=== PATIENT | female | born 1980 | race African-American/Black ===

== ENCOUNTER 2020-05-20 20:24 | Inpatient (IN) | payer MEDICAID ==
[~2020-05-20] VITALS: Ht 160 cm; Wt 78.9 kg
[2020-05-20] MEDS ORDERED: KETOROLAC 30MG/ML VIAL IV STA (21:28)
[2020-05-20] MEDS ORDERED: SODIUM CHLORIDE 0.9% 1,000 ML IV ONE (21:30)
[2020-05-20] MEDS ORDERED: METHYLPREDNISOLONE SOD SUCC 125 MG/2 ML VIAL IV ONE (21:30)
[2020-05-20 22:00] LABS: CLARITY URINE CLEAR (CLEAR); COLOR URINE YELLOW (YELLOW); KETONES URINE TRACE (NEGATIVE); LEUKOCYTE ESTERASE URINE NEGATIVE (NEGATIVE); NITRITE URINE NEGATIVE (NEGATIVE); OCCULT BLOOD URINE NEGATIVE (NEGATIVE); PROTEIN URINE 1+ (NEGATIVE)
[2020-05-20 22:00] LABS: BASOPHILS % 0.6 % (0.0-2.0); EOSINOPHILS % 0.1 % (0.0-5.0); HEMATOCRIT. 37.5 % (36.0-48.0); HEMOGLOBIN. 12.8 g/dL (12.0-16.0); MEAN CORPUSCULAR HEMOGLOBIN 29.1 pg (28.0-32.0); MEAN CORPUSCULAR VOLUME 85.4 fL (81.0-99.0); MEAN PLATELET VOLUME 8.2 fl (7.4-10.4); MONOCYTES % 2.9 % (2.0-8.0); NEUTROPHILS % 82.4 % (40.0-76.0); PLATELET 308 x1000/uL (130-400); RED BLOOD CELL COUNT 4.39 mill/uL (4.2-5.4); RED CELL DISTRIBUTION WIDTH 13.7 % (11.6-14.6)
[2020-05-20 22:07] LABS: PROTHROMBIN TIME 10.8 sec (9.6-11.0)
[2020-05-20 22:14] LABS: CHLORIDE 97 mEq/L (98-107)
[2020-05-20 22:14] LABS: PHENCYCLIDINE URINE SCREEN NEGATIVE (NEGATIVE)
[2020-05-20 22:15] LABS: *AMPHETAMINES SCREEN URINE NEGATIVE (NEGATIVE); *BARBITURATES SCREEN URINE NEGATIVE (NEGATIVE); *BENZODIAZEPINES SCREEN URINE NEGATIVE (NEGATIVE); *COCAINE SCREEN URINE NEGATIVE (NEGATIVE); CANNABINOID URINE SCREEN NEGATIVE (NEGATIVE); METHADONE URINE SCREEN NEGATIVE (NEGATIVE); OPIATES URINE SCREEN NEGATIVE (NEGATIVE)
[2020-05-20 22:17] LABS: HCG SCREEN NEGATIVE
[2020-05-20 22:22] LABS: BETA HYDROXYBUTYRATE 0.2 mMol/L (0.0-0.3)
[2020-05-20] MEDS ORDERED: INSULIN REGULAR (HUMULIN R) 300UNITS/3ML VIAL SUBCUT NR (22:45)
[2020-05-20] MEDS ORDERED: CEFTRIAXONE 1 G PREMIX 50 ML IV NR (22:45)
[2020-05-20] MEDS ORDERED: SODIUM CHLORIDE 0.9% 1000ML BAG (SEPSIS BOLUS) IV NR (22:45)
[2020-05-20] MEDS ORDERED: ONDANSETRON HCL 4MG/2ML INJ IV STA (22:48)
[2020-05-20] MEDS ORDERED: MORPHINE SULFATE 4 MG/ML CPJ (NOT FOR IM USE) IV STA (22:48)
[2020-05-20] MEDS ORDERED: DIPHENHYDRAMINE 50MG/ML VIAL IV ONE (23:00)
[2020-05-21] MEDS: MORPHINE SULFATE 2 MG/ML CPJ (NOT FOR IM USE) IV PRN ×4 (01:28→16:25)
[2020-05-21] MEDS ORDERED: CLONIDINE 0.1MG TABLET PO PRN (01:30)
[2020-05-21] MEDS ORDERED: DEXTROSE 50% WATER 50ML SYRINGE IV PRN (03:00)
[2020-05-21] MEDS ORDERED: GABA-532 PO (03:09)
[2020-05-21] MEDS ORDERED: INSU100I24 SQ (03:09)
[2020-05-21] MEDS ORDERED: ATOR20TA65 PO (03:09)
[2020-05-21] MEDS ORDERED: METF-873 PO (03:09)
[2020-05-21] MEDS ORDERED: INSU100I32 SQ (03:09)
[2020-05-21] MEDS ORDERED: LISI2.5T47 PO (03:09)
[2020-05-21] MEDS ORDERED: DICL75TA5 PO (03:09)
[2020-05-21] MEDS ORDERED: PRED2.5T4 PO (03:09)
[2020-05-21] MEDS ORDERED: HYDR25TA PO (03:09)
[2020-05-21 03:11] VITALS: BP 153/78
[2020-05-21 04:00] VITALS: BP 138/72
[2020-05-21] MEDS: GABAPENTIN 300MG CAPSULE PO SCH ×3 (06:09→22:27)
[2020-05-21] MEDS: METFORMIN HCL 500MG TABLET PO SCH ×2 (06:43→18:33)
[2020-05-21] MEDS: INSULIN LISPRO 100 UNITS/ML SUBCUT SCH ×4 (06:44→20:48)
[2020-05-21] MEDS: BLOOD SUGAR DIAGNOSTIC STRIP TEST SCH ×4 (06:54→20:53)
[2020-05-21 08:00] VITALS: BP 140/74
[2020-05-21] MEDS ORDERED: PREDNISONE 5MG TABLET PO SCH (09:00)
[2020-05-21] MEDS: ENOXAPARIN 40MG/0.4ML SYR SUBCUT SCH (09:04)
[2020-05-21] MEDS: METHYLPREDNISOLONE SOD SUCC 40 MG/ML VIAL IV SCH ×3 (09:04→22:27)
[2020-05-21] MEDS: LISINOPRIL 20MG TABLET PO SCH (09:04)
[2020-05-21] MEDS ORDERED: INSULIN GLARGINE UD 100 UNITS/ML SYR SUBCUT SCH ×2 (10:00)
[2020-05-21 12:00] VITALS: BP 138/74
[2020-05-21 16:00] VITALS: BP 141/68
[2020-05-21 20:00] VITALS: BP 160/82
[2020-05-21] MEDS: ATORVASTATIN CALCIUM 20MG TABLET PO SCH (20:51)
[2020-05-21] MEDS ORDERED: INSULIN REGULAR (HUMULIN R) UD 100 UNITS/ML SYR SUBCUT NR (21:00)
[2020-05-21] MEDS ORDERED: INSULIN LISPRO 100 UNITS/ML SUBCUT NR (21:00)
[2020-05-21] MEDS: ZOLPIDEM TARTRATE 5MG TABLET PO PRN (22:27)
[2020-05-21] MEDS: INSULIN GLARGINE UD 100 UNITS/ML SYR SUBCUT SCH (22:29)
[2020-05-22] VITALS: BP 135/69
[2020-05-22] MEDS: CELECOXIB 200MG CAPSULE PO SCH ×3 (02:30→16:50)
[2020-05-22] MEDS: HYDROXYCHLOROQUINE SULFATE 200MG TABLET PO SCH ×3 (02:30→16:50)
[2020-05-22] MEDS: MORPHINE SULFATE 2 MG/ML CPJ (NOT FOR IM USE) IV PRN ×4 (02:36→23:25)
[2020-05-22 04:00] VITALS: BP 130/69
[2020-05-22] MEDS: METFORMIN HCL 500MG TABLET PO SCH ×2 (06:44→16:50)
[2020-05-22] MEDS: BLOOD SUGAR DIAGNOSTIC STRIP TEST SCH ×4 (06:44→21:57)
[2020-05-22] MEDS: GABAPENTIN 300MG CAPSULE PO SCH ×3 (06:44→23:12)
[2020-05-22] MEDS: METHYLPREDNISOLONE SOD SUCC 40 MG/ML VIAL IV SCH ×2 (06:44→20:24)
[2020-05-22] MEDS: INSULIN LISPRO 100 UNITS/ML SUBCUT SCH ×4 (06:44→21:00)
[2020-05-22 08:00] VITALS: BP 158/80
[2020-05-22] MEDS: LISINOPRIL 20MG TABLET PO SCH (09:12)
[2020-05-22] MEDS: ENOXAPARIN 40MG/0.4ML SYR SUBCUT SCH (09:25)
[2020-05-22] MEDS: INSULIN GLARGINE UD 100 UNITS/ML SYR SUBCUT SCH ×2 (09:28→22:00)
[2020-05-22] MEDS ORDERED: ONDANSETRON HCL 4MG/2ML INJ IV PRN (10:30)
[2020-05-22 12:00] VITALS: BP 141/75
[2020-05-22] MEDS ORDERED: ACETAMINOPHEN 325MG TABLET PO PRN (14:30)
[2020-05-22 16:00] VITALS: BP 152/81
[2020-05-22] MEDS ORDERED: DOCUSATE SODIUM 250MG CAPSULE PO PRN (16:15)
[2020-05-22] MEDS ORDERED: DOCUSATE SODIUM 250MG CAPSULE PO NR (16:15)
[2020-05-22] MEDS: SODIUM CHLORIDE 0.9% 1,000 ML IV SCH (16:51)
[2020-05-22 17:31] LABS: BASOPHILS % 0.3 % (0.0-2.0); HEMATOCRIT. 32.5 % (36.0-48.0); HEMOGLOBIN. 11.2 g/dL (12.0-16.0); LYMPHOCYTES % 15.4 % (20.0-50.0); MEAN CORPUSCULAR HEMOGLOBIN 29.4 pg (28.0-32.0); MEAN CORPUSCULAR VOLUME 85.4 fL (81.0-99.0); MONOCYTES % 5.2 % (2.0-8.0); NEUTROPHILS % 79.1 % (40.0-76.0); PLATELET 285 x1000/uL (130-400); RED BLOOD CELL COUNT 3.81 mill/uL (4.2-5.4); RED CELL DISTRIBUTION WIDTH 13.7 % (11.6-14.6)
[2020-05-22 17:40] LABS: CHLORIDE 102 mEq/L (98-107)
[2020-05-22] MEDS: METOCLOPRAMIDE HCL 10MG/2ML VIAL IV SCH ×2 (19:44→23:12)
[2020-05-22 20:00] VITALS: BP 152/83
[2020-05-22] MEDS: ATORVASTATIN CALCIUM 20MG TABLET PO SCH (20:24)
[2020-05-22] MEDS: FAMOTIDINE 20MG TABLET PO SCH (20:24)
[2020-05-22] MEDS: ZOLPIDEM TARTRATE 5MG TABLET PO PRN (23:24)
[2020-05-23] VITALS: BP 158/80
[2020-05-23] MEDS: SODIUM CHLORIDE 0.9% 1,000 ML IV SCH (03:50)
[2020-05-23 04:00] VITALS: BP 138/72
[2020-05-23] MEDS: METHYLPREDNISOLONE SOD SUCC 40 MG/ML VIAL IV SCH (05:26)
[2020-05-23] MEDS: METOCLOPRAMIDE HCL 10MG/2ML VIAL IV SCH ×2 (05:26→11:58)
[2020-05-23] MEDS: GABAPENTIN 300MG CAPSULE PO SCH ×2 (05:28→14:44)
[2020-05-23] MEDS: BLOOD SUGAR DIAGNOSTIC STRIP TEST SCH ×2 (05:35→11:58)
[2020-05-23] MEDS: INSULIN LISPRO 100 UNITS/ML SUBCUT SCH ×2 (07:40→13:20)
[2020-05-23 08:00] VITALS: BP 143/75
[2020-05-23 09:06] LABS: ANTI-DNA DOUBLE STRANDED QUANT < 1 IU/mL (0-9); G6PD RBC 3.99 x10E6/uL (3.77-5.28)
[2020-05-23] MEDS ORDERED: EZ-HD SUSPENSION(BARIUM SULFATE 340GM) PO ONE (09:58)
[2020-05-23] MEDS ORDERED: BARIUM SULFATE 176 GM SUSP.RECON ONE (09:59)
[2020-05-23] MEDS ORDERED: SIMETHICONE/SOD BICARB/CIT AC 1 EACH GRAN.EF.PK ONE (10:15)
[2020-05-23] MEDS: LISINOPRIL 20MG TABLET PO SCH (11:35)
[2020-05-23] MEDS: METFORMIN HCL 500MG TABLET PO SCH (11:35)
[2020-05-23] MEDS: ENOXAPARIN 40MG/0.4ML SYR SUBCUT SCH (11:35)
[2020-05-23] MEDS: HYDROXYCHLOROQUINE SULFATE 200MG TABLET PO SCH (11:35)
[2020-05-23] MEDS: FAMOTIDINE 20MG TABLET PO SCH (11:36)
[2020-05-23] MEDS: INSULIN GLARGINE UD 100 UNITS/ML SYR SUBCUT SCH (11:57)
[2020-05-23] MEDS: CELECOXIB 200MG CAPSULE PO SCH (11:58)
[2020-05-23 12:00] VITALS: BP 155/79
[2020-05-23] MEDS ORDERED: MAGNESIUM/ALUMINUM HYDROXIDE/SIMETHICONE 30ML UDC PO PRN (14:15)
[2020-05-23] MEDS ORDERED: MAGNESIUM/ALUMINUM HYDROXIDE/SIMETHICONE 30ML UDC PO SCH (14:15)
[2020-05-23] MEDS ORDERED: FAMO20TA8 PO (14:49)
[2020-05-23] MEDS ORDERED: HYDR200T35 PO (14:49)
[2020-05-23] MEDS ORDERED: METO-293 MT (14:49)
[2020-05-23] MEDS ORDERED: CELE200C PO (14:49)
[2020-05-23] MEDS ORDERED: PRED10TA MT (14:51)
[2020-05-23 15:06] LABS: G6PD QUANTITATIVE 342 (127-427)
[2020-05-23 15:25] VITALS: BP 166/77
[2020-05-23] MEDS ORDERED: INSULIN GLARGINE UD 100 UNITS/ML SYR SUBCUT SCH (22:00)
[2020-05-24 09:08] LABS: ALDOLASE 4.6 U/L (3.3-10.3); ANGIOTENSION CONVERTING ENZYME 7 U/L (14-82); GLOMERULAR BASEMENT MEMB AB 3 units (0-20)
[2020-05-24 13:06] LABS: ANA IFA Negative (.); ATYPICAL P-ANCA <1:20 titer (Neg:<1:20); CYTOPLASMIC C-ANCA <1:20 titer (Neg:<1:20); PERINUCLEAR P-ANCA <1:20 titer (Neg:<1:20)
[2020-05-25 04:07] LABS: DRVVT LA 30.6 sec (0.0-47.0); LUPUS ANTICOAG INTERPRETATION Comment: (.); PTT-LA 31.6 sec (0.0-51.9)
[2020-05-25 09:09] LABS: ANTI-CARDIOLIPIN AB IGA < 9 APL U/mL (0-11); ANTI-CARDIOLIPIN AB IGG < 9 GPL U/mL (0-14)
[2020-05-25 14:08] LABS: ANTI-MYELOPEROXIDASE AB < 9.0 U/mL (0.0-9.0); ANTI-PROTEINASE 3 ABS < 3.5 U/mL (0.0-3.5)
== END 2020-05-23 16:05 | disposition home or self-care (01) | DRG 48 ==
LOC: ER 20:24 → 8WST 23:13 → EDBEDREQ 23:29 → EDBEDREQTM 23:29 → ENRESERV 05-21 00:34
PROVIDERS: ADMIT Internal Medicine; ATTEND Internal Medicine
DX: E11.43 Type 2 diabetes mellitus with diabetic autonomic (poly)neuropathy (principal); M32.9 Systemic lupus erythematosus, unspecified; R65.10 Systemic inflammatory response syndrome (SIRS) of non-infectious origin without acute organ dysfunction; E87.2 Acidosis; E87.1 Hypo-osmolality and hyponatremia; E87.8 Other disorders of electrolyte and fluid balance, not elsewhere classified; K29.70 Gastritis, unspecified, without bleeding; E78.5 Hyperlipidemia, unspecified; D72.810 Lymphocytopenia; I10 Essential (primary) hypertension; M54.5 Low back pain; J45.909 Unspecified asthma, uncomplicated; E11.9 Type 2 diabetes mellitus without complications; M13.0 Polyarthritis, unspecified; R80.9 Proteinuria, unspecified; K59.00 Constipation, unspecified; K31.84 Gastroparesis; Z88.5 Allergy status to narcotic agent; Z90.710 Acquired absence of both cervix and uterus
CPT/HCPCS: 36415; 71045; 74220; 80048; 80053; 80305; 81003; 82010; 82085; 82164; 82955; 82962; 83036; 83520; 83605; 84145; 84156; 84439; 84484; 84703; 85025; 85041; 85613; 85651; 85732; 86147; 86160; 86225; 86256; 86431; 86592; 86780; 93005; 96374; 99291; C1893; J0696; J1200; J1650; J1815; J1885; J2270; J2405; J2765; J2920; J2930; J7030; J7517

== ENCOUNTER 2020-06-26 01:58 | Emergency (ER) | payer MEDICAID ==
[~2020-06-26] VITALS: Ht 162.6 cm; Wt 73.0 kg
[~2020-06-26 01:58] MED LIST: ATOR20TA65 PO; CELE200C PO; FAMO20TA8 PO; GABA-532 PO; HYDR200T35 PO; HYDR25TA PO; INSU100I24 SQ; INSU100I32 SQ; LISI2.5T47 PO; METF-873 PO; METO-293 MT; PRED10TA MT; PRED2.5T4 PO
[2020-06-26 02:03] VITALS: BP 118/72
== END 2020-06-26 02:45 | disposition left against medical advice (07) ==
LOC: ER 01:58
DX: Z53.21 Procedure and treatment not carried out due to patient leaving prior to being seen by health care provider (principal); I49.9 Cardiac arrhythmia, unspecified
CPT/HCPCS: 82962; 93005

== ENCOUNTER 2021-02-22 23:04 | Inpatient (IN) | payer MEDICAID ==
[~2021-02-22] VITALS: Ht 162.6 cm; Wt 83.9 kg
[2021-02-22] MEDS ORDERED: ONDANSETRON HCL 4MG/2ML INJ IV STA (23:15)
[2021-02-22 23:42] LABS: HEMATOCRIT. 34.6 % (36.0-48.0); HEMOGLOBIN. 11.8 g/dL (12.0-16.0); MEAN CORPUSCULAR HEMOGLOBIN 29.6 pg (28.0-32.0); MEAN CORPUSCULAR VOLUME 86.4 fL (81.0-99.0); MEAN PLATELET VOLUME 7.9 fl (7.4-10.4); PLATELET 286 x1000/uL (130-400); RED CELL DISTRIBUTION WIDTH 13.9 % (11.6-14.6)
[2021-02-22] MEDS ORDERED: DIPHENHYDRAMINE 50MG/ML VIAL IV ONE (23:45)
[2021-02-22] MEDS ORDERED: MORPHINE SULFATE 4 MG/ML CPJ (NOT FOR IM USE) IV ONE (23:45)
[2021-02-22 23:49] LABS: CHLORIDE 94 mEq/L (98-107)
[2021-02-22 23:50] LABS: HCG SCREEN NEGATIVE
[2021-02-22 23:55] LABS: ETHANOL BLOOD < 10 mg/dL
[2021-02-23 01:16] LABS: PLATELET ESTIMATE NORMAL
[2021-02-23] MEDS ORDERED: IOHEXOL-350 100 ML BOTTLE ONE (02:21)
[2021-02-23] MEDS ORDERED: MORPHINE SULFATE 4 MG/ML CPJ (NOT FOR IM USE) IV ONE (02:45)
[2021-02-23] MEDS ORDERED: METOCLOPRAMIDE HCL 10MG/2ML VIAL IV NR (03:45)
[2021-02-23] MEDS ORDERED: SODIUM CHLORIDE 0.9% 1,000 ML IV NR ×2 (03:45)
[2021-02-23] MEDS ORDERED: INSULIN REGULAR (HUMULIN R) 300UNITS/3ML VIAL IV ONE (04:00)
[2021-02-23 04:38] LABS: CLARITY URINE CLEAR (CLEAR); COLOR URINE YELLOW (YELLOW); KETONES URINE TRACE (NEGATIVE); LEUKOCYTE ESTERASE URINE NEGATIVE (NEGATIVE); NITRITE URINE NEGATIVE (NEGATIVE); OCCULT BLOOD URINE NEGATIVE (NEGATIVE); PH URINE 7.5 (4.5-8.0); PROTEIN URINE 1+ (NEGATIVE)
[2021-02-23] MEDS ORDERED: ASPIRIN 81MG TABLET PO ONE (04:45)
[2021-02-23 04:51] LABS: *AMPHETAMINES SCREEN URINE NEGATIVE (NEGATIVE); *BARBITURATES SCREEN URINE NEGATIVE (NEGATIVE); *BENZODIAZEPINES SCREEN URINE NEGATIVE (NEGATIVE); *COCAINE SCREEN URINE NEGATIVE (NEGATIVE)
[2021-02-23 04:52] LABS: CANNABINOID URINE SCREEN NEGATIVE (NEGATIVE); METHADONE URINE SCREEN NEGATIVE (NEGATIVE); PHENCYCLIDINE URINE SCREEN NEGATIVE (NEGATIVE)
[2021-02-23 05:02] LABS: OPIATES URINE SCREEN PRESUMTIVE POSITIVE (NEGATIVE)
[2021-02-23] MEDS: HYDROCODONE/ACETAMINOPHEN 5/325MG TABLET PO PRN ×3 (08:45→21:48)
[2021-02-23] MEDS ORDERED: INSULIN LISPRO 100 UNITS/ML SUBCUT NR (11:30)
[2021-02-23 12:14] VITALS: BP 114/76
[2021-02-23] MEDS ORDERED: DEXTROSE 50% WATER 50ML SYRINGE IV PRN (13:00)
[2021-02-23] MEDS ORDERED: INSULIN GLARGINE UD 100 UNITS/ML SYR SUBCUT NR (13:00)
[2021-02-23 13:30] VITALS: BP 138/67
[2021-02-23] MEDS ORDERED: NON FORMULARY PATIENT HOME MED XX SCH ×2 (14:30)
[2021-02-23] MEDS ORDERED: QUET100T34 PO (14:32)
[2021-02-23] MEDS ORDERED: PRAZ2CAP2 PO (14:32)
[2021-02-23] MEDS ORDERED: FLUT1BLS IH (14:32)
[2021-02-23] MEDS ORDERED: ESCI20TA37 PO (14:32)
[2021-02-23] MEDS: BLOOD SUGAR DIAGNOSTIC STRIP TEST SCH ×2 (16:40→21:00)
[2021-02-23] MEDS ORDERED: CELECOXIB 200MG CAPSULE PO SCH (17:00)
[2021-02-23] MEDS: METFORMIN HCL 500MG TABLET PO SCH (17:53)
[2021-02-23] MEDS: NYSTATIN 100,000 UNITS/ML 5ML UDC SSW SCH (17:53)
[2021-02-23] MEDS: HYDROXYCHLOROQUINE SULFATE 200MG TABLET PO SCH (17:53)
[2021-02-23] MEDS: INSULIN LISPRO 100 UNITS/ML SUBCUT SCH ×2 (17:55→22:13)
[2021-02-23 18:00] VITALS: BP 128/52
[2021-02-23 20:00] VITALS: BP 133/59
[2021-02-23] MEDS ORDERED: GABAPENTIN 300MG CAPSULE PO SCH (21:00)
[2021-02-23] MEDS: CELECOXIB 200MG CAPSULE PO SCH (21:51)
[2021-02-23] MEDS: FAMOTIDINE 20MG TABLET PO SCH (21:52)
[2021-02-23] MEDS: CLOTRIMAZOLE 1% VAGINAL CREAM 45GM VG SCH (21:52)
[2021-02-23] MEDS: ATORVASTATIN CALCIUM 20MG TABLET PO SCH (21:52)
[2021-02-24] VITALS (21 sets, daily range): BP systolic 70–153; BP diastolic 44–62
[2021-02-24] MEDS: NYSTATIN 100,000 UNITS/ML 5ML UDC SSW SCH ×4 (01:43→19:00)
[2021-02-24] MEDS: INSULIN GLARGINE UD 100 UNITS/ML SYR SUBCUT SCH ×3 (01:44→22:42)
[2021-02-24] MEDS: METOCLOPRAMIDE HCL 10MG/2ML VIAL IV SCH ×2 (02:22→06:20)
[2021-02-24] MEDS ORDERED: GABAPENTIN 300MG CAPSULE PO SCH (06:00)
[2021-02-24] MEDS: METFORMIN HCL 500MG TABLET PO SCH ×2 (06:21→17:56)
[2021-02-24] MEDS: BLOOD SUGAR DIAGNOSTIC STRIP TEST SCH ×4 (06:21→22:37)
[2021-02-24] MEDS: GABAPENTIN 300MG CAPSULE PO SCH ×3 (06:21→17:56)
[2021-02-24] MEDS: INSULIN LISPRO 100 UNITS/ML SUBCUT SCH ×4 (06:23→22:42)
[2021-02-24 07:06] LABS: HEMATOCRIT. 30.3 % (36.0-48.0); MEAN CORPUSCULAR HEMOGLOBIN 28.5 pg (28.0-32.0); MEAN PLATELET VOLUME 8.3 fl (7.4-10.4); PLATELET 211 x1000/uL (130-400); RED BLOOD CELL COUNT 3.52 mill/uL (4.2-5.4); RED CELL DISTRIBUTION WIDTH 14.2 % (11.6-14.6)
[2021-02-24] MEDS: HYDROCODONE/ACETAMINOPHEN 10/325MG TABLET PO PRN ×2 (08:30→19:20)
[2021-02-24] MEDS: HYDROXYCHLOROQUINE SULFATE 200MG TABLET PO SCH ×2 (08:56→20:21)
[2021-02-24] MEDS: CEFTRIAXONE 1,000 MG in DEXTROSE 5% WATER 50 ML IV SCH ×2 (08:56→21:00)
[2021-02-24] MEDS: FAMOTIDINE 20MG TABLET PO SCH ×2 (08:56→22:32)
[2021-02-24] MEDS: SODIUM CHLORIDE 0.45% 1,000 ML IV SCH ×2 (08:56→09:05)
[2021-02-24] MEDS: PREDNISONE 5MG TABLET PO SCH (08:57)
[2021-02-24] MEDS: CELECOXIB 200MG CAPSULE PO SCH (08:59)
[2021-02-24] MEDS ORDERED: HYDROCHLOROTHIAZIDE 25MG TABLET PO SCH (09:00)
[2021-02-24] MEDS ORDERED: LISINOPRIL 2.5MG TABLET PO SCH (09:00)
[2021-02-24] MEDS: ONDANSETRON HCL 4MG/2ML INJ IV PRN (11:06)
[2021-02-24] MEDS: ACETAMINOPHEN 325MG TABLET PO PRN ×2 (12:41→20:22)
[2021-02-24] MEDS ORDERED: SODIUM CHLORIDE 0.9% 1000ML BAG (SEPSIS BOLUS) IV ONE (13:00)
[2021-02-24 13:01] LABS: PLATELET ESTIMATE NORMAL
[2021-02-24] MEDS: MIDODRINE HCL 5MG TABLET PO SCH ×2 (13:10→17:55)
[2021-02-24] MEDS: METOCLOPRAMIDE HCL 10MG TABLET PO SCH ×2 (14:14→17:56)
[2021-02-24] MEDS: SODIUM CHLORIDE 0.9% 1,000 ML IV SCH (14:35)
[2021-02-24] MEDS ORDERED: SODIUM CHLORIDE 0.9% 500 ML IV NR (15:30)
[2021-02-24] MEDS ORDERED: PHENYLEPHRINE 100 MG in DEXT 5% WATER 240 ML IV PRN (17:15)
[2021-02-24] MEDS: ATORVASTATIN CALCIUM 20MG TABLET PO SCH (20:21)
[2021-02-24] MEDS ORDERED: INSULIN GLARGINE UD 100 UNITS/ML SYR SUBCUT SCH (22:00)
[2021-02-24] MEDS: CLOTRIMAZOLE 1% VAGINAL CREAM 45GM VG SCH (22:29)
[2021-02-24] MEDS: NOREPINEPHRINE 8 MG in DEXT 5% WATER 242 ML IV PRN (23:30)
[2021-02-25] VITALS (92 sets, daily range): BP systolic 60–172; BP diastolic 29–127
[2021-02-25] MEDS: METOCLOPRAMIDE HCL 10MG TABLET PO SCH ×2 (01:26→07:20)
[2021-02-25] MEDS: NYSTATIN 100,000 UNITS/ML 5ML UDC SSW SCH ×4 (01:26→18:16)
[2021-02-25] MEDS: SODIUM CHLORIDE 0.9% 1,000 ML IV SCH ×2 (01:27→14:01)
[2021-02-25 05:55] LABS: HEMATOCRIT. 29.8 % (36.0-48.0); HEMOGLOBIN. 9.7 g/dL (12.0-16.0); MEAN CORPUSCULAR HEMOGLOBIN 28.9 pg (28.0-32.0); MEAN CORPUSCULAR VOLUME 88.3 fL (81.0-99.0); MEAN PLATELET VOLUME 9.5 fl (7.4-10.4); PLATELET 160 x1000/uL (130-400); RED BLOOD CELL COUNT 3.37 mill/uL (4.2-5.4); RED CELL DISTRIBUTION WIDTH 14.3 % (11.6-14.6)
[2021-02-25] MEDS: METFORMIN HCL 500MG TABLET PO SCH (07:20)
[2021-02-25] MEDS: BLOOD SUGAR DIAGNOSTIC STRIP TEST SCH ×4 (07:30→22:30)
[2021-02-25] MEDS ORDERED: ONDANSETRON HCL 4MG/2ML INJ IV PRN (07:45)
[2021-02-25] MEDS: ONDANSETRON HCL 4MG/2ML INJ IV PRN ×2 (07:50→18:16)
[2021-02-25] MEDS: INSULIN LISPRO 100 UNITS/ML SUBCUT SCH ×4 (07:54→22:30)
[2021-02-25 08:31] LABS: PLATELET ESTIMATE NORMAL
[2021-02-25] MEDS: PREDNISONE 5MG TABLET PO SCH (08:53)
[2021-02-25] MEDS: FAMOTIDINE 20MG TABLET PO SCH (08:54)
[2021-02-25] MEDS: HYDROXYCHLOROQUINE SULFATE 200MG TABLET PO SCH ×2 (08:54→16:51)
[2021-02-25] MEDS: MIDODRINE HCL 5MG TABLET PO SCH ×3 (08:54→16:51)
[2021-02-25] MEDS: GABAPENTIN 300MG CAPSULE PO SCH ×3 (08:54→16:51)
[2021-02-25] MEDS ORDERED: LIDOCAINE HCL 1% 20ML VIAL (Pyxis) INJ ONE (09:50)
[2021-02-25] MEDS: INSULIN GLARGINE UD 100 UNITS/ML SYR SUBCUT SCH ×2 (10:27→22:45)
[2021-02-25] MEDS: NOREPINEPHRINE 8 MG in DEXT 5% WATER 242 ML IV PRN (10:57)
[2021-02-25] MEDS: METOCLOPRAMIDE HCL 10MG/2ML VIAL IV SCH ×2 (11:52→18:16)
[2021-02-25] MEDS ORDERED: IPRATROPIUM/ALBUTEROL 0.5-3(2.5)MG/3ML NEB HHN PRN (13:30)
[2021-02-25] MEDS: BUDESONIDE 0.5MG/2ML NEB HHN SCH ×2 (14:47→21:40)
[2021-02-25] MEDS: IPRATROPIUM/ALBUTEROL 0.5-3(2.5)MG/3ML NEB HHN SCH ×2 (14:48→21:40)
[2021-02-25] MEDS: CEFTRIAXONE 1,000 MG in DEXTROSE 5% WATER 50 ML IV SCH (21:00)
[2021-02-25] MEDS: ATORVASTATIN CALCIUM 20MG TABLET PO SCH (22:00)
[2021-02-25] MEDS: CLOTRIMAZOLE 1% VAGINAL CREAM 45GM VG SCH (22:00)
[2021-02-26] VITALS (91 sets, daily range): BP systolic 68–148; BP diastolic 41–94
[2021-02-26] MEDS: NYSTATIN 100,000 UNITS/ML 5ML UDC SSW SCH ×4 (00:30→17:35)
[2021-02-26] MEDS: METOCLOPRAMIDE HCL 10MG/2ML VIAL IV SCH ×4 (00:30→17:36)
[2021-02-26] MEDS: SODIUM CHLORIDE 0.9% 1,000 ML IV SCH ×3 (01:01→14:26)
[2021-02-26] MEDS: IPRATROPIUM/ALBUTEROL 0.5-3(2.5)MG/3ML NEB HHN SCH ×4 (03:04→20:47)
[2021-02-26 05:32] LABS: MEAN CORPUSCULAR HEMOGLOBIN 28.4 pg (28.0-32.0); MEAN CORPUSCULAR VOLUME 85.6 fL (81.0-99.0); MEAN PLATELET VOLUME 9.1 fl (7.4-10.4); PLATELET 130 x1000/uL (130-400); RED BLOOD CELL COUNT 3.16 mill/uL (4.2-5.4); RED CELL DISTRIBUTION WIDTH 14.6 % (11.6-14.6)
[2021-02-26 05:48] LABS: CHLORIDE 101 mEq/L (98-107)
[2021-02-26 05:57] LABS: PHOSPHORUS 2.4 mg/dL (2.5-4.9)
[2021-02-26] MEDS: BLOOD SUGAR DIAGNOSTIC STRIP TEST SCH ×4 (06:24→20:34)
[2021-02-26] MEDS: INSULIN LISPRO 100 UNITS/ML SUBCUT SCH ×4 (06:25→20:41)
[2021-02-26] MEDS: BUDESONIDE 0.5MG/2ML NEB HHN SCH ×2 (08:31→20:50)
[2021-02-26] MEDS ORDERED: SODIUM PHOS,M-BASIC-D-BASIC 15 MM in DEXT 5% WATER 250 ML IV SCH (09:00)
[2021-02-26] MEDS ORDERED: MAGNESIUM 2 G PREMIX 50 ML IV SCH (09:00)
[2021-02-26] MEDS: FAMOTIDINE 20MG TABLET PO SCH (09:05)
[2021-02-26] MEDS: HYDROXYCHLOROQUINE SULFATE 200MG TABLET PO SCH ×2 (09:05→17:35)
[2021-02-26] MEDS: PREDNISONE 5MG TABLET PO SCH (09:05)
[2021-02-26] MEDS: MIDODRINE HCL 5MG TABLET PO SCH ×3 (09:06→17:36)
[2021-02-26] MEDS: GABAPENTIN 300MG CAPSULE PO SCH ×3 (09:06→17:36)
[2021-02-26] MEDS: INSULIN GLARGINE UD 100 UNITS/ML SYR SUBCUT SCH ×2 (09:13→22:44)
[2021-02-26] MEDS: NOREPINEPHRINE 8 MG in DEXT 5% WATER 242 ML IV PRN (09:24)
[2021-02-26 09:48] LABS: PLATELET ESTIMATE NORMAL
[2021-02-26] MEDS ORDERED: LIDOCAINE HCL/PF 1% 2ML VIAL ONE (12:27)
[2021-02-26 13:01] LABS: BG BASE EXCESS -10.6 mmol/L (-2.0-2.0); BG CARBOXYHEMOGLOBIN 0.1 % (0.5-1.5); BG DEOXYHEMOGLOBIN 6.5 % (0.0-5.0); BG HCO3 ACT 13.8 mmol/L (22.0-26.0); BG METHEMOGLOBIN 0.1 % (0.0-1.5); BG OXYGEN SATURATION 93.5 % (92.0-98.5); BG OXYHEMOGLOBIN 93.3 % (94.0-97.0); BG PCO2 25.6 mmHg (35.0-45.0); BG PH 7.348 (7.350-7.450); BG PO2 77.6 mmHg (75.0-100.0); BG SAMPLE SITE RIGHT RADIAL; BG TOTAL HEMOGLOBIN 8.7 g/dL (12.0-18.0); BG VENT MODE NASAL CANNULA
[2021-02-26] MEDS: ATORVASTATIN CALCIUM 20MG TABLET PO SCH (20:40)
[2021-02-26] MEDS: CEFTRIAXONE 1,000 MG in DEXTROSE 5% WATER 50 ML IV SCH (20:40)
[2021-02-26] MEDS: CLOTRIMAZOLE 1% VAGINAL CREAM 45GM VG SCH (20:43)
[2021-02-27] VITALS (75 sets, daily range): BP systolic 94–149; BP diastolic 41–95
[2021-02-27 00:24] LABS: BG BASE EXCESS -1.4 mmol/L (-2.0-2.0); BG DEOXYHEMOGLOBIN 9.3 % (0.0-5.0); BG HCO3 ACT 23.1 mmol/L (22.0-26.0); BG METHEMOGLOBIN 0.3 % (0.0-1.5); BG OXYGEN SATURATION 90.6 % (92.0-98.5); BG OXYHEMOGLOBIN 89.4 % (94.0-97.0); BG PCO2 37.4 mmHg (35.0-45.0); BG PH 7.408 (7.350-7.450); BG PO2 59.4 mmHg (75.0-100.0); BG SAMPLE SITE RIGHT RADIAL; BG VENT MODE MASK - SIMPLE
[2021-02-27] MEDS: NYSTATIN 100,000 UNITS/ML 5ML UDC SSW SCH ×5 (00:24→23:52)
[2021-02-27] MEDS: METOCLOPRAMIDE HCL 10MG/2ML VIAL IV SCH ×5 (00:25→23:52)
[2021-02-27] MEDS: SODIUM CHLORIDE 0.9% 1,000 ML IV SCH ×2 (00:28→06:27)
[2021-02-27] MEDS: IPRATROPIUM/ALBUTEROL 0.5-3(2.5)MG/3ML NEB HHN SCH ×4 (01:26→20:13)
[2021-02-27] MEDS: HYDROCODONE/ACETAMINOPHEN 5/325MG TABLET PO PRN (03:44)
[2021-02-27] MEDS: DIPHENHYDRAMINE 25MG CAPSULE PO PRN (03:44)
[2021-02-27] MEDS: BLOOD SUGAR DIAGNOSTIC STRIP TEST SCH ×4 (06:01→20:48)
[2021-02-27] MEDS: INSULIN LISPRO 100 UNITS/ML SUBCUT SCH ×4 (06:01→21:32)
[2021-02-27 06:24] LABS: HEMATOCRIT. 26.4 % (36.0-48.0); HEMOGLOBIN. 8.9 g/dL (12.0-16.0); MEAN CORPUSCULAR HEMOGLOBIN 28.9 pg (28.0-32.0); MEAN PLATELET VOLUME 8.9 fl (7.4-10.4); PLATELET 111 x1000/uL (130-400); RED BLOOD CELL COUNT 3.07 mill/uL (4.2-5.4); RED CELL DISTRIBUTION WIDTH 14.7 % (11.6-14.6)
[2021-02-27 06:26] LABS: PHOSPHORUS 2.7 mg/dL (2.5-4.9)
[2021-02-27] MEDS ORDERED: FUROSEMIDE 20MG/2ML VIAL IVP SCH (08:00)
[2021-02-27 08:07] LABS: PLATELET ESTIMATE DECREASED
[2021-02-27] MEDS: BUDESONIDE 0.5MG/2ML NEB HHN SCH ×2 (08:48→20:14)
[2021-02-27] MEDS: GABAPENTIN 300MG CAPSULE PO SCH ×3 (08:55→17:18)
[2021-02-27] MEDS: FAMOTIDINE 20MG TABLET PO SCH (08:55)
[2021-02-27] MEDS: HYDROXYCHLOROQUINE SULFATE 200MG TABLET PO SCH ×2 (08:56→17:18)
[2021-02-27] MEDS: PREDNISONE 5MG TABLET PO SCH (08:56)
[2021-02-27] MEDS: INSULIN GLARGINE UD 100 UNITS/ML SYR SUBCUT SCH ×2 (08:57→21:33)
[2021-02-27] MEDS: MIDODRINE HCL 5MG TABLET PO SCH ×3 (08:59→17:19)
[2021-02-27] MEDS: WATER IV SCH (13:28)
[2021-02-27] MEDS: DEXT 5% IV SCH (13:28)
[2021-02-27] MEDS: CEFTRIAXONE IV SCH (13:28)
[2021-02-27] MEDS: ACETAMINOPHEN 325MG TABLET PO PRN (21:32)
[2021-02-27] MEDS: ATORVASTATIN CALCIUM 20MG TABLET PO SCH (21:32)
[2021-02-27] MEDS: CLOTRIMAZOLE 1% VAGINAL CREAM 45GM VG SCH (21:33)
[2021-02-28] VITALS (74 sets, daily range): BP systolic 95–149; BP diastolic 33–88
[2021-02-28] MEDS: IPRATROPIUM/ALBUTEROL 0.5-3(2.5)MG/3ML NEB HHN SCH ×4 (03:54→20:32)
[2021-02-28 05:37] LABS: HEMATOCRIT. 26.5 % (36.0-48.0); HEMOGLOBIN. 8.9 g/dL (12.0-16.0); MEAN CORPUSCULAR HEMOGLOBIN 28.7 pg (28.0-32.0); MEAN CORPUSCULAR VOLUME 85.7 fL (81.0-99.0); MEAN PLATELET VOLUME 8.5 fl (7.4-10.4); PLATELET 107 x1000/uL (130-400); RED BLOOD CELL COUNT 3.09 mill/uL (4.2-5.4); RED CELL DISTRIBUTION WIDTH 14.9 % (11.6-14.6)
[2021-02-28 05:48] LABS: PHOSPHORUS 3.5 mg/dL (2.5-4.9)
[2021-02-28] MEDS: NYSTATIN 100,000 UNITS/ML 5ML UDC SSW SCH ×3 (06:06→18:15)
[2021-02-28] MEDS: METOCLOPRAMIDE HCL 10MG/2ML VIAL IV SCH ×4 (06:06→23:19)
[2021-02-28] MEDS: DIPHENHYDRAMINE 25MG CAPSULE PO PRN (06:06)
[2021-02-28] MEDS: BLOOD SUGAR DIAGNOSTIC STRIP TEST SCH ×4 (06:30→20:55)
[2021-02-28] MEDS: INSULIN LISPRO 100 UNITS/ML SUBCUT SCH ×4 (07:00→21:09)
[2021-02-28 08:00] LABS: PLATELET ESTIMATE DECREASED
[2021-02-28] MEDS: BUDESONIDE 0.5MG/2ML NEB HHN SCH (08:01)
[2021-02-28] MEDS: FAMOTIDINE 20MG TABLET PO SCH (09:14)
[2021-02-28] MEDS: MIDODRINE HCL 5MG TABLET PO SCH ×2 (09:14→18:16)
[2021-02-28] MEDS: GABAPENTIN 300MG CAPSULE PO SCH ×3 (09:14→18:17)
[2021-02-28] MEDS: HYDROXYCHLOROQUINE SULFATE 200MG TABLET PO SCH ×2 (09:14→18:19)
[2021-02-28] MEDS: PREDNISONE 5MG TABLET PO SCH (09:14)
[2021-02-28] MEDS ORDERED: LORAZEPAM 2MG/ML CPJ IV NR (09:30)
[2021-02-28] MEDS ORDERED: FUROSEMIDE 20MG/2ML VIAL IVP NR (09:30)
[2021-02-28 12:06] LABS: BG BASE EXCESS -2.2 mmol/L (-2.0-2.0); BG CARBOXYHEMOGLOBIN 0.7 % (0.5-1.5); BG HCO3 ACT 22.5 mmol/L (22.0-26.0); BG METHEMOGLOBIN 0.2 % (0.0-1.5); BG OXYHEMOGLOBIN 94.1 % (94.0-97.0); BG PCO2 37.9 mmHg (35.0-45.0); BG PH 7.391 (7.350-7.450); BG SAMPLE SITE RIGHT RADIAL; BG TOTAL HEMOGLOBIN 8.8 g/dL (12.0-18.0); BG VENT MODE MASK - SIMPLE
[2021-02-28] MEDS: CITALOPRAM HYDROBROMIDE 10MG TABLET PO SCH (14:32)
[2021-02-28] MEDS: CEFTRIAXONE IV SCH (14:32)
[2021-02-28] MEDS: DEXT 5% IV SCH (14:32)
[2021-02-28] MEDS: WATER IV SCH (14:32)
[2021-02-28] MEDS: HYDROCODONE/ACETAMINOPHEN 5/325MG TABLET PO PRN (18:39)
[2021-02-28] MEDS: ATORVASTATIN CALCIUM 20MG TABLET PO SCH (20:39)
[2021-02-28] MEDS: QUETIAPINE FUMARATE 50MG TABLET PO SCH (20:39)
[2021-02-28] MEDS: CLOTRIMAZOLE 1% VAGINAL CREAM 45GM VG SCH (21:07)
[2021-02-28] MEDS: INSULIN GLARGINE UD 100 UNITS/ML SYR SUBCUT SCH (21:10)
[2021-03-01] VITALS (12 sets, daily range): BP systolic 100–136; BP diastolic 47–74
[2021-03-01 04:09] LABS: HIV SCREEN 4G Non Reactive (Non Reactive)
[2021-03-01] MEDS: IPRATROPIUM/ALBUTEROL 0.5-3(2.5)MG/3ML NEB HHN SCH ×4 (04:32→21:35)
[2021-03-01] MEDS: METOCLOPRAMIDE HCL 10MG/2ML VIAL IV SCH ×3 (04:43→17:37)
[2021-03-01 07:21] LABS: HEMATOCRIT. 25.8 % (36.0-48.0); HEMOGLOBIN. 8.5 g/dL (12.0-16.0); MEAN CORPUSCULAR HEMOGLOBIN 28.6 pg (28.0-32.0); MEAN CORPUSCULAR VOLUME 86.6 fL (81.0-99.0); MEAN PLATELET VOLUME 8.4 fl (7.4-10.4); PLATELET 109 x1000/uL (130-400); RED BLOOD CELL COUNT 2.98 mill/uL (4.2-5.4); RED CELL DISTRIBUTION WIDTH 15.1 % (11.6-14.6)
[2021-03-01 07:36] LABS: PHOSPHORUS 2.7 mg/dL (2.5-4.9)
[2021-03-01] MEDS: BLOOD SUGAR DIAGNOSTIC STRIP TEST SCH ×4 (08:25→21:00)
[2021-03-01] MEDS: CITALOPRAM HYDROBROMIDE 10MG TABLET PO SCH (08:38)
[2021-03-01] MEDS: HYDROCODONE/ACETAMINOPHEN 5/325MG TABLET PO PRN ×2 (08:42→19:46)
[2021-03-01] MEDS: MIDODRINE HCL 5MG TABLET PO SCH ×2 (08:44→16:18)
[2021-03-01] MEDS: HYDROXYCHLOROQUINE SULFATE 200MG TABLET PO SCH ×2 (08:44→16:18)
[2021-03-01] MEDS: GABAPENTIN 300MG CAPSULE PO SCH ×3 (08:45→16:18)
[2021-03-01] MEDS: PREDNISONE 5MG TABLET PO SCH (08:45)
[2021-03-01] MEDS: FAMOTIDINE 20MG TABLET PO SCH (08:45)
[2021-03-01] MEDS ORDERED: NON FORMULARY PATIENT HOME MED XX SCH (09:00)
[2021-03-01] MEDS: INSULIN LISPRO 100 UNITS/ML SUBCUT SCH ×4 (09:00→20:38)
[2021-03-01] MEDS: INSULIN GLARGINE UD 100 UNITS/ML SYR SUBCUT SCH ×2 (09:14→22:00)
[2021-03-01] MEDS ORDERED: FUROSEMIDE 20MG/2ML VIAL IVP NR (10:15)
[2021-03-01] MEDS ORDERED: MAGNESIUM 2 G PREMIX 50 ML IV NR (11:00)
[2021-03-01 11:24] LABS: PLATELET ESTIMATE DECREASED
[2021-03-01] MEDS: CEFTRIAXONE 2 G in DEXTROSE 5% WATER 50 ML IV SCH (13:46)
[2021-03-01 13:50] LABS: BG BASE EXCESS -0.2 mmol/L (-2.0-2.0); BG CARBOXYHEMOGLOBIN 0.9 % (0.5-1.5); BG DEOXYHEMOGLOBIN 19.9 % (0.0-5.0); BG FRACTION INSPIRED OXYGEN 21; BG HCO3 ACT 24.4 mmol/L (22.0-26.0); BG METHEMOGLOBIN 0.1 % (0.0-1.5); BG OXYGEN SATURATION 79.9 % (92.0-98.5); BG OXYHEMOGLOBIN 79.1 % (94.0-97.0); BG PCO2 39.4 mmHg (35.0-45.0); BG PH 7.409 (7.350-7.450); BG PO2 44.1 mmHg (75.0-100.0); BG SAMPLE SITE RIGHT RADIAL; BG TOTAL HEMOGLOBIN 9.7 g/dL (12.0-18.0); BG VENT MODE ROOM AIR
[2021-03-01] MEDS ORDERED: NALOXONE HCL 0.4MG/ML VIAL IV PRN (16:30)
[2021-03-01] MEDS: QUETIAPINE FUMARATE 50MG TABLET PO SCH (20:37)
[2021-03-01] MEDS: ATORVASTATIN CALCIUM 20MG TABLET PO SCH (20:37)
[2021-03-02] VITALS (12 sets, daily range): BP systolic 109–147; BP diastolic 50–74
[2021-03-02] MEDS: IPRATROPIUM/ALBUTEROL 0.5-3(2.5)MG/3ML NEB HHN SCH ×4 (01:18→19:58)
[2021-03-02] MEDS: HYDROCODONE/ACETAMINOPHEN 5/325MG TABLET PO PRN ×2 (03:34→08:01)
[2021-03-02] MEDS: METOCLOPRAMIDE HCL 10MG/2ML VIAL IV SCH ×4 (06:46→17:16)
[2021-03-02 07:52] LABS: PHOSPHORUS 3.5 mg/dL (2.5-4.9)
[2021-03-02] MEDS: BLOOD SUGAR DIAGNOSTIC STRIP TEST SCH ×4 (07:58→21:45)
[2021-03-02] MEDS: HYDROXYCHLOROQUINE SULFATE 200MG TABLET PO SCH ×2 (08:00→17:15)
[2021-03-02] MEDS: GABAPENTIN 300MG CAPSULE PO SCH ×3 (08:00→17:15)
[2021-03-02] MEDS: PREDNISONE 5MG TABLET PO SCH (08:00)
[2021-03-02] MEDS: MIDODRINE HCL 5MG TABLET PO SCH ×2 (08:00→17:16)
[2021-03-02] MEDS: FAMOTIDINE 20MG TABLET PO SCH (08:00)
[2021-03-02] MEDS: INSULIN LISPRO 100 UNITS/ML SUBCUT SCH ×6 (08:03→21:22)
[2021-03-02 08:12] LABS: HEMATOCRIT. 27.1 % (36.0-48.0); HEMOGLOBIN. 8.8 g/dL (12.0-16.0); MEAN CORPUSCULAR HEMOGLOBIN 28.4 pg (28.0-32.0); MEAN CORPUSCULAR VOLUME 87.2 fL (81.0-99.0); MEAN PLATELET VOLUME 8.6 fl (7.4-10.4); PLATELET 138 x1000/uL (130-400); RED BLOOD CELL COUNT 3.11 mill/uL (4.2-5.4); RED CELL DISTRIBUTION WIDTH 14.9 % (11.6-14.6)
[2021-03-02] MEDS: CITALOPRAM HYDROBROMIDE 10MG TABLET PO SCH (09:22)
[2021-03-02] MEDS: INSULIN GLARGINE UD 100 UNITS/ML SYR SUBCUT SCH ×2 (09:25→22:42)
[2021-03-02 12:54] LABS: PLATELET ESTIMATE NORMAL
[2021-03-02] MEDS: CEFTRIAXONE 2 G in DEXTROSE 5% WATER 50 ML IV SCH (13:23)
[2021-03-02] MEDS: FUROSEMIDE 40MG TABLET PO SCH (15:05)
[2021-03-02] MEDS ORDERED: HYDROCODONE/ACETAMINOPHEN 5/325MG TABLET PO PRN (19:30)
[2021-03-02] MEDS: QUETIAPINE FUMARATE 50MG TABLET PO SCH (21:30)
[2021-03-02] MEDS: ATORVASTATIN CALCIUM 20MG TABLET PO SCH (21:30)
[2021-03-03] VITALS: BP 125/66
[2021-03-03] MEDS: METOCLOPRAMIDE HCL 10MG/2ML VIAL IV SCH ×3 (00:18→12:19)
[2021-03-03 02:00] VITALS: BP 114/60
[2021-03-03] MEDS: IPRATROPIUM/ALBUTEROL 0.5-3(2.5)MG/3ML NEB HHN SCH ×3 (02:01→12:26)
[2021-03-03 04:00] VITALS: BP 124/59
[2021-03-03 05:41] LABS: HEMATOCRIT. 23.8 % (36.0-48.0); HEMOGLOBIN. 7.9 g/dL (12.0-16.0); MEAN CORPUSCULAR HEMOGLOBIN 28.3 pg (28.0-32.0); MEAN CORPUSCULAR VOLUME 85.6 fL (81.0-99.0); MEAN PLATELET VOLUME 8.4 fl (7.4-10.4); PLATELET 151 x1000/uL (130-400); RED BLOOD CELL COUNT 2.78 mill/uL (4.2-5.4); RED CELL DISTRIBUTION WIDTH 14.7 % (11.6-14.6)
[2021-03-03 06:00] VITALS: BP 119/59
[2021-03-03 06:05] LABS: PHOSPHORUS 3.8 mg/dL (2.5-4.9)
[2021-03-03] MEDS: BLOOD SUGAR DIAGNOSTIC STRIP TEST SCH ×2 (07:39→12:19)
[2021-03-03] MEDS: INSULIN LISPRO 100 UNITS/ML SUBCUT SCH ×3 (07:48→13:09)
[2021-03-03 08:00] VITALS: BP 120/55
[2021-03-03] MEDS: GABAPENTIN 300MG CAPSULE PO SCH ×2 (08:58→13:09)
[2021-03-03] MEDS: CITALOPRAM HYDROBROMIDE 10MG TABLET PO SCH (08:58)
[2021-03-03] MEDS: HYDROXYCHLOROQUINE SULFATE 200MG TABLET PO SCH (08:58)
[2021-03-03] MEDS: PREDNISONE 5MG TABLET PO SCH (08:59)
[2021-03-03] MEDS: FUROSEMIDE 40MG TABLET PO SCH (08:59)
[2021-03-03] MEDS: MIDODRINE HCL 5MG TABLET PO SCH (08:59)
[2021-03-03] MEDS: FAMOTIDINE 20MG TABLET PO SCH (09:00)
[2021-03-03] MEDS: INSULIN GLARGINE UD 100 UNITS/ML SYR SUBCUT SCH (10:45)
[2021-03-03 12:00] VITALS: BP 122/56
[2021-03-03] MEDS ORDERED: MAGNESIUM 2 G PREMIX 50 ML IV SCH (16:30)
[2021-03-03 19:12] LABS: PLATELET ESTIMATE NORMAL
[2021-03-03] MEDS ORDERED: METOPROLOL TARTRATE 25MG TABLET PO SCH (21:00)
[2021-03-04 09:06] LABS: ANTI-DNA DOUBLE STRANDED QUANT < 1 IU/mL (0-9)
[2021-03-05 14:10] LABS: B-2 GLYCOPROTEIN IGA < 9 (0-25); B-2 GLYCOPROTEIN IGG < 9 (0-20)
[2021-03-06 14:09] LABS: ANTI-CARDIOLIPIN AB IGA < 9 APL U/mL (0-11); ANTI-CARDIOLIPIN AB IGG < 9 GPL U/mL (0-14); ANTI-CARDIOLIPIN AB IGM 9 MPL U/mL (0-12)
== END 2021-03-03 15:00 | disposition left against medical advice (07) | DRG 720 ==
LOC: ER 23:04 → 7EST 02-23 04:38 → ENRESERV 02-23 10:23 → MICUSO 02-24 17:10 → 5EST 02-28 22:50
PROVIDERS: ADMIT Internal Medicine; ATTEND Internal Medicine
PROC: 02HV33Z Insertion of Infusion Device into Superior Vena Cava, Percutaneous Approach (ICD-10-PCS; principal; 2021-02-25)
PROC: B548ZZA Ultrasonography of Superior Vena Cava, Guidance (ICD-10-PCS; 2021-02-25)
DX: A41.50 Gram-negative sepsis, unspecified (principal); J96.01 Acute respiratory failure with hypoxia; N17.0 Acute kidney failure with tubular necrosis; I50.31 Acute diastolic (congestive) heart failure; R65.21 Severe sepsis with septic shock; D69.6 Thrombocytopenia, unspecified; E87.1 Hypo-osmolality and hyponatremia; B37.0 Candidal stomatitis; I13.0 Hypertensive heart and chronic kidney disease with heart failure and stage 1 through stage 4 chronic kidney disease, or unspecified chronic kidney disease; E11.65 Type 2 diabetes mellitus with hyperglycemia; E87.8 Other disorders of electrolyte and fluid balance, not elsewhere classified; J45.909 Unspecified asthma, uncomplicated; E78.5 Hyperlipidemia, unspecified; N12 Tubulo-interstitial nephritis, not specified as acute or chronic; B96.20 Unspecified Escherichia coli [E. coli] as the cause of diseases classified elsewhere; D64.9 Anemia, unspecified; E11.22 Type 2 diabetes mellitus with diabetic chronic kidney disease; K21.9 Gastro-esophageal reflux disease without esophagitis; N18.30 Chronic kidney disease, stage 3 unspecified; N28.0 Ischemia and infarction of kidney; M32.14 Glomerular disease in systemic lupus erythematosus; N28.81 Hypertrophy of kidney; Z88.5 Allergy status to narcotic agent; Z90.710 Acquired absence of both cervix and uterus; Z82.49 Family history of ischemic heart disease and other diseases of the circulatory system; Z91.010 Allergy to peanuts
CPT/HCPCS: 36415; 36600; 71045; 71275; 73706; 74176; 76937; 80048; 80053; 80305; 80320; 81003; 82140; 82270; 82375; 82805; 82962; 83735; 83880; 84100; 84145; 84484; 84703; 85025; 86146; 86147; 86225; 87077; 87186; 87389; 93005; 93306; 94640; 97116; 97162; 97530; 99291; A6261; C1725; C1893; J0696; J1200; J1815; J1940; J2060; J2270; J2405; J2765; J3475; J3490; J7030; J7040; J7060; J7512; J7626; J8597; Q0163; Q9967; G0480

== ENCOUNTER 2021-04-15 13:15 | Inpatient (IN) | payer MEDICAID ==
[~2021-04-15] VITALS: Ht 162.6 cm; Wt 59.9 kg
[~2021-04-15 13:15] MED LIST changes: +ESCI20TA37 PO; +FLUT1BLS IH; +PRAZ2CAP2 PO; +QUET100T34 PO
[2021-04-15] MEDS ORDERED: SODIUM CHLORIDE 0.9% 1,000 ML IV ONE (14:15)
[2021-04-15] MEDS ORDERED: ACETAMINOPHEN 325MG TABLET PO ONE (14:15)
[2021-04-15] MEDS ORDERED: ONDANSETRON HCL 4MG/2ML INJ IV ONE (14:15)
[2021-04-15 15:13] LABS: CHLORIDE 89 mEq/L (98-107)
[2021-04-15 15:17] LABS: ETHANOL BLOOD < 10 mg/dL
[2021-04-15 15:18] LABS: MEAN CORPUSCULAR HEMOGLOBIN 27.2 pg (28.0-32.0); MEAN CORPUSCULAR VOLUME 83.9 fL (81.0-99.0); MEAN PLATELET VOLUME 6.8 fl (7.4-10.4); PLATELET 408 x1000/uL (130-400); RED BLOOD CELL COUNT 2.41 mill/uL (4.2-5.4)
[2021-04-15 15:21] LABS: HEMATOCRIT. 20.2 % (36.0-48.0); HEMOGLOBIN. 6.6 g/dL (12.0-16.0)
[2021-04-15 15:41] LABS: HCG SCREEN NEGATIVE
[2021-04-15 16:24] LABS: PLATELET ESTIMATE INCREASED
[2021-04-15] MEDS ORDERED: INSULIN REGULAR (HUMULIN R) 300UNITS/3ML VIAL SUBCUT ONE (16:30)
[2021-04-15] MEDS ORDERED: CEFTRIAXONE 1 G PREMIX 50 ML IV ONE (17:15)
[2021-04-15 20:21] LABS: CLARITY URINE CLOUDY (CLEAR); COLOR URINE YELLOW (YELLOW); KETONES URINE NEGATIVE (NEGATIVE); LEUKOCYTE ESTERASE URINE 2+ (NEGATIVE); NITRITE URINE NEGATIVE (NEGATIVE); OCCULT BLOOD URINE 1+ (NEGATIVE); PROTEIN URINE 2+ (NEGATIVE); SPECIFIC GRAVITY URINE 1.022 (1.005-1.030)
[2021-04-15 20:40] LABS: *AMPHETAMINES SCREEN URINE NEGATIVE (NEGATIVE); *BENZODIAZEPINES SCREEN URINE NEGATIVE (NEGATIVE); *COCAINE SCREEN URINE NEGATIVE (NEGATIVE); CANNABINOID URINE SCREEN NEGATIVE (NEGATIVE); METHADONE URINE SCREEN NEGATIVE (NEGATIVE); OPIATES URINE SCREEN NEGATIVE (NEGATIVE); PHENCYCLIDINE URINE SCREEN NEGATIVE (NEGATIVE)
[2021-04-15 20:41] LABS: *BARBITURATES SCREEN URINE PRESUMTIVE POSITIVE (NEGATIVE)
[2021-04-15] MEDS ORDERED: NALOXONE HCL 0.4MG/ML VIAL IV PRN (22:30)
[2021-04-15] MEDS: HYDROCODONE/ACETAMINOPHEN 10/325MG TABLET PO PRN (23:36)
[2021-04-16] VITALS (12 sets, daily range): BP systolic 97–131; BP diastolic 53–72
[2021-04-16] MEDS ORDERED: DEXTROSE 50% WATER 50ML SYRINGE IV PRN (00:15)
[2021-04-16] MEDS ORDERED: DIPHENHYDRAMINE 50MG/ML VIAL IV PRN (03:30)
[2021-04-16] MEDS ORDERED: MORPHINE SULFATE 2 MG/ML CPJ (NOT FOR IM USE) IV NR (06:00)
[2021-04-16] MEDS ORDERED: INSULIN LISPRO 100 UNITS/ML SUBCUT SCH (07:00)
[2021-04-16] MEDS: METOCLOPRAMIDE HCL 5MG TABLET PO SCH ×4 (07:01→23:01)
[2021-04-16] MEDS: BLOOD SUGAR DIAGNOSTIC STRIP TEST SCH ×4 (07:02→21:47)
[2021-04-16] MEDS: INSULIN LISPRO 100 UNITS/ML SUBCUT SCH ×6 (07:02→22:06)
[2021-04-16] MEDS ORDERED: GABAPENTIN 300MG CAPSULE PO SCH (09:00)
[2021-04-16] MEDS: FAMOTIDINE 20MG TABLET PO SCH (09:05)
[2021-04-16] MEDS: PREDNISONE 5MG TABLET PO SCH (09:05)
[2021-04-16] MEDS: HYDROXYCHLOROQUINE SULFATE 200MG TABLET PO SCH ×2 (09:05→17:39)
[2021-04-16] MEDS ORDERED: INSULIN GLARGINE UD 100 UNITS/ML SYR SUBCUT SCH (10:00)
[2021-04-16] MEDS ORDERED: CEFTRIAXONE 1 G PREMIX 50 ML IV SCH (11:30)
[2021-04-16] MEDS: SODIUM CHLORIDE 0.9% 1,000 ML IV SCH (13:53)
[2021-04-16] MEDS: CEFTRIAXONE 1,000 MG in DEXTROSE 5% WATER 50 ML IV SCH (14:15)
[2021-04-16] MEDS: GABAPENTIN 300MG CAPSULE PO SCH (17:45)
[2021-04-16 18:59] LABS: BASOPHILS % 0.3 % (0.0-2.0); EOSINOPHILS % 0.1 % (0.0-5.0); HEMATOCRIT. 29.8 % (36.0-48.0); HEMOGLOBIN. 10.2 g/dL (12.0-16.0); LYMPHOCYTES % 12.7 % (20.0-50.0); MEAN CORPUSCULAR HEMOGLOBIN 28.6 pg (28.0-32.0); MEAN CORPUSCULAR VOLUME 83.6 fL (81.0-99.0); MEAN PLATELET VOLUME 7.1 fl (7.4-10.4); MONOCYTES % 5.1 % (2.0-8.0); NEUTROPHILS % 81.8 % (40.0-76.0); PLATELET 475 x1000/uL (130-400); RED BLOOD CELL COUNT 3.56 mill/uL (4.2-5.4); RED CELL DISTRIBUTION WIDTH 14.2 % (11.6-14.6)
[2021-04-16 19:43] LABS: VITAMIN B12 SERUM 848 pg/mL (211-911)
[2021-04-16] MEDS: QUETIAPINE FUMARATE 50MG TABLET PO SCH (22:06)
[2021-04-16] MEDS: HYDROCODONE/ACETAMINOPHEN 10/325MG TABLET PO PRN (22:06)
[2021-04-16] MEDS: INSULIN GLARGINE UD 100 UNITS/ML SYR SUBCUT SCH (23:02)
[2021-04-17] VITALS: BP 95/56
[2021-04-17 04:00] VITALS: BP 102/66
[2021-04-17] MEDS: BLOOD SUGAR DIAGNOSTIC STRIP TEST SCH ×4 (06:00→21:45)
[2021-04-17] MEDS: HYDROCODONE/ACETAMINOPHEN 10/325MG TABLET PO PRN (06:18)
[2021-04-17] MEDS: METOCLOPRAMIDE HCL 5MG TABLET PO SCH ×3 (06:18→18:09)
[2021-04-17] MEDS: SODIUM CHLORIDE 0.9% 1,000 ML IV SCH (06:18)
[2021-04-17] MEDS: INSULIN LISPRO 100 UNITS/ML SUBCUT SCH ×7 (06:19→21:53)
[2021-04-17 08:00] VITALS: BP 100/63
[2021-04-17] MEDS: HYDROXYCHLOROQUINE SULFATE 200MG TABLET PO SCH ×2 (09:39→18:09)
[2021-04-17] MEDS: GABAPENTIN 300MG CAPSULE PO SCH ×3 (09:39→18:09)
[2021-04-17] MEDS: PREDNISONE 5MG TABLET PO SCH (09:39)
[2021-04-17] MEDS: INSULIN GLARGINE UD 100 UNITS/ML SYR SUBCUT SCH ×2 (09:40→21:56)
[2021-04-17] MEDS: FAMOTIDINE 20MG TABLET PO SCH (09:44)
[2021-04-17] MEDS: CEFTRIAXONE 1,000 MG in DEXTROSE 5% WATER 50 ML IV SCH (11:42)
[2021-04-17 12:00] VITALS: BP 128/71
[2021-04-17] MEDS ORDERED: SODIUM POLYSTYRENE SULFONATE 15 G/60 ML BOT PO NR (15:30)
[2021-04-17] MEDS ORDERED: CEPH500T MT (16:17)
[2021-04-17 20:00] VITALS: BP 128/71
[2021-04-17] MEDS: QUETIAPINE FUMARATE 50MG TABLET PO SCH (21:44)
[2021-04-18] VITALS: BP 122/68
[2021-04-18] MEDS: METOCLOPRAMIDE HCL 5MG TABLET PO SCH ×3 (00:49→12:45)
[2021-04-18] MEDS: SODIUM CHLORIDE 0.9% 1,000 ML IV SCH (03:43)
[2021-04-18] MEDS: BLOOD SUGAR DIAGNOSTIC STRIP TEST SCH ×2 (05:57→12:08)
[2021-04-18] MEDS: INSULIN LISPRO 100 UNITS/ML SUBCUT SCH ×3 (07:15→12:45)
[2021-04-18 08:00] VITALS: BP 93/60
[2021-04-18] MEDS: FAMOTIDINE 20MG TABLET PO SCH (09:16)
[2021-04-18] MEDS: PREDNISONE 5MG TABLET PO SCH (09:16)
[2021-04-18] MEDS: GABAPENTIN 300MG CAPSULE PO SCH (09:16)
[2021-04-18] MEDS: HYDROXYCHLOROQUINE SULFATE 200MG TABLET PO SCH (09:16)
[2021-04-18] MEDS: INSULIN GLARGINE UD 100 UNITS/ML SYR SUBCUT SCH (10:00)
[2021-04-18 12:00] VITALS: BP 100/62
== END 2021-04-18 14:00 | disposition home or self-care (01) | DRG 720 ==
LOC: ER 13:15 → MICUSO 18:15 → EDBEDREQTM 18:27 → EDBEDREQ 18:27 → 5WST 04-16 05:07
PROVIDERS: ADMIT Internal Medicine; ATTEND Internal Medicine
PROC: 30233N1 Transfusion of Nonautologous Red Blood Cells into Peripheral Vein, Percutaneous Approach (ICD-10-PCS; principal; 2021-04-15)
DX: A41.9 Sepsis, unspecified organism (principal); N17.0 Acute kidney failure with tubular necrosis; E43 Unspecified severe protein-calorie malnutrition; E11.22 Type 2 diabetes mellitus with diabetic chronic kidney disease; E87.1 Hypo-osmolality and hyponatremia; E87.8 Other disorders of electrolyte and fluid balance, not elsewhere classified; M32.9 Systemic lupus erythematosus, unspecified; D64.9 Anemia, unspecified; E11.65 Type 2 diabetes mellitus with hyperglycemia; N17.9 Acute kidney failure, unspecified; Z20.822 Contact with and (suspected) exposure to COVID-19; N39.0 Urinary tract infection, site not specified; J45.909 Unspecified asthma, uncomplicated; N28.89 Other specified disorders of kidney and ureter; K21.9 Gastro-esophageal reflux disease without esophagitis; N18.9 Chronic kidney disease, unspecified; Z88.8 Allergy status to other drugs, medicaments and biological substances; Z88.5 Allergy status to narcotic agent; Z91.010 Allergy to peanuts; Z90.710 Acquired absence of both cervix and uterus; Z68.22 Body mass index [BMI] 22.0-22.9, adult
CPT/HCPCS: 36415; 71045; 74176; 80048; 80053; 80061; 80305; 80320; 81003; 82010; 82270; 82607; 82962; 83036; 83540; 83550; 84484; 84703; 85025; 86850; 86900; 86920; 87077; 87186; 87426; 93005; 99285; C1893; J0696; J1200; J1815; J2270; J2405; J7030; J7040; J7060; J7512; J8597; P9016; G0480

== ENCOUNTER 2021-04-28 21:45 | Inpatient (IN) | payer MEDICAID ==
[~2021-04-28] VITALS: Ht 162.6 cm; Wt 52.6 kg
[~2021-04-28 21:45] MED LIST changes: -ATOR20TA65 PO; -CELE200C PO; +CEPH500T MT
[2021-04-28 23:29] LABS: HEMATOCRIT. 25.8 % (36.0-48.0); HEMOGLOBIN. 8.5 g/dL (12.0-16.0); MEAN CORPUSCULAR HEMOGLOBIN 27.6 pg (28.0-32.0); MEAN CORPUSCULAR VOLUME 83.8 fL (81.0-99.0); MEAN PLATELET VOLUME 7.3 fl (7.4-10.4); PLATELET 351 x1000/uL (130-400); RED BLOOD CELL COUNT 3.08 mill/uL (4.2-5.4); RED CELL DISTRIBUTION WIDTH 13.8 % (11.6-14.6)
[2021-04-28 23:33] LABS: CHLORIDE 99 mEq/L (98-107)
[2021-04-28 23:46] LABS: B-HCG QUANTITATIVE < 1 mIU/mL (<3)
[2021-04-29 00:25] LABS: CLARITY URINE CLOUDY (CLEAR); COLOR URINE YELLOW (YELLOW); KETONES URINE NEGATIVE (NEGATIVE); LEUKOCYTE ESTERASE URINE 3+ (NEGATIVE); NITRITE URINE NEGATIVE (NEGATIVE); OCCULT BLOOD URINE TRACE (NEGATIVE); PH URINE 5.5 (4.5-8.0); PROTEIN URINE 1+ (NEGATIVE); SPECIFIC GRAVITY URINE 1.015 (1.005-1.030)
[2021-04-29] MEDS ORDERED: HYDROCODONE/ACETAMINOPHEN 10/325MG TABLET PO ONE (00:45)
[2021-04-29] MEDS ORDERED: DIPHENHYDRAMINE 50MG CAPSULE PO ONE (00:45)
[2021-04-29] MEDS ORDERED: DIPHENHYDRAMINE 50MG/ML VIAL IV ONE ×2 (01:30→05:45)
[2021-04-29] MEDS ORDERED: MORPHINE SULFATE 4 MG/ML CPJ (NOT FOR IM USE) IV ONE ×2 (01:30→05:45)
[2021-04-29 02:07] LABS: PLATELET ESTIMATE NORMAL
[2021-04-29] MEDS ORDERED: CEFTRIAXONE SODIUM 1 G/VIAL IM ONE (05:30)
[2021-04-29 08:40] VITALS: BP 135/65
[2021-04-29] MEDS ORDERED: DEXTROSE 50% WATER 50ML SYRINGE IV PRN ×2 (10:00)
[2021-04-29] MEDS ORDERED: CEFTRIAXONE 1 G PREMIX 50 ML IV SCH (10:00)
[2021-04-29] MEDS ORDERED: CLONIDINE 0.1MG TABLET PO PRN (10:00)
[2021-04-29] MEDS ORDERED: MAGNESIUM/ALUMINUM HYDROXIDE/SIMETHICONE 30ML UDC PO PRN (10:00)
[2021-04-29] MEDS ORDERED: FLUTICASONE/VILANTEROL 200-25 BLST.W.DEV ORI SCH (10:00)
[2021-04-29] MEDS ORDERED: ONDANSETRON HCL 4MG/2ML INJ IV PRN (10:00)
[2021-04-29] MEDS ORDERED: NALOXONE HCL 0.4MG/ML VIAL IV PRN (10:15)
[2021-04-29] MEDS: ENOXAPARIN 40MG/0.4ML SYR SUBCUT SCH (11:24)
[2021-04-29] MEDS: SODIUM CHLORIDE 0.9% 1,000 ML IV SCH (11:24)
[2021-04-29] MEDS: LISINOPRIL 2.5MG TABLET PO SCH (11:24)
[2021-04-29] MEDS: MORPHINE SULFATE 2 MG/ML CPJ (NOT FOR IM USE) IV PRN ×2 (11:25→18:24)
[2021-04-29 12:00] VITALS: BP 117/60
[2021-04-29] MEDS: BLOOD SUGAR DIAGNOSTIC STRIP TEST SCH ×3 (12:03→21:14)
[2021-04-29] MEDS: METOCLOPRAMIDE HCL 10MG TABLET PO SCH ×3 (12:05→21:13)
[2021-04-29] MEDS: INSULIN LISPRO 100 UNITS/ML SUBCUT SCH ×3 (12:31→21:00)
[2021-04-29] MEDS: DIPHENHYDRAMINE 50MG CAPSULE PO PRN (12:57)
[2021-04-29] MEDS: ACETAMINOPHEN 325MG TABLET PO PRN (15:48)
[2021-04-29 16:00] VITALS: BP 104/51
[2021-04-29] MEDS: METFORMIN HCL 500MG TABLET PO SCH (18:23)
[2021-04-29] MEDS: HYDROXYCHLOROQUINE SULFATE 200MG TABLET PO SCH (18:23)
[2021-04-29 20:00] VITALS: BP 121/70
[2021-04-29 20:34] VITALS: BP 133/88
[2021-04-29] MEDS ORDERED: DICL75TA5 PO (21:00)
[2021-04-29] MEDS ORDERED: PRED-276 MT (21:01)
[2021-04-29] MEDS ORDERED: HYDR200T35 PO (21:02)
[2021-04-29] MEDS ORDERED: ATOR20TA65 PO (21:04)
[2021-04-29] MEDS ORDERED: HYDR25TA PO (21:05)
[2021-04-29] MEDS ORDERED: MONT10TA32 PO (21:06)
[2021-04-29] MEDS ORDERED: LANS15CA17 PO (21:06)
[2021-04-29] MEDS ORDERED: AZEL137S7 NS (21:08)
[2021-04-29] MEDS: FAMOTIDINE 20MG TABLET PO SCH (21:13)
[2021-04-29] MEDS: QUETIAPINE FUMARATE 50MG TABLET PO SCH (21:13)
[2021-04-29] MEDS: GABAPENTIN 300MG CAPSULE PO SCH (21:13)
[2021-04-29] MEDS: PRAZOSIN HCL 1MG CAPSULE PO SCH (21:14)
[2021-04-30] VITALS (7 sets, daily range): BP systolic 91–159; BP diastolic 45–75
[2021-04-30] MEDS: SODIUM CHLORIDE 0.9% 1,000 ML IV SCH ×2 (00:29→11:04)
[2021-04-30] MEDS: MORPHINE SULFATE 2 MG/ML CPJ (NOT FOR IM USE) IV PRN ×3 (04:55→21:21)
[2021-04-30] MEDS: CEFTRIAXONE 1,000 MG in DEXTROSE 5% WATER 50 ML IV SCH (04:57)
[2021-04-30] MEDS: BLOOD SUGAR DIAGNOSTIC STRIP TEST SCH ×4 (07:04→21:10)
[2021-04-30 07:17] LABS: BASOPHILS % 0.5 % (0.0-2.0); EOSINOPHILS % 0.6 % (0.0-5.0); HEMATOCRIT. 21.8 % (36.0-48.0); HEMOGLOBIN. 7.5 g/dL (12.0-16.0); LYMPHOCYTES % 15.7 % (20.0-50.0); MEAN CORPUSCULAR HEMOGLOBIN 28.6 pg (28.0-32.0); MEAN CORPUSCULAR VOLUME 83.4 fL (81.0-99.0); MEAN PLATELET VOLUME 7.2 fl (7.4-10.4); MONOCYTES % 5.9 % (2.0-8.0); NEUTROPHILS % 77.3 % (40.0-76.0); PLATELET 301 x1000/uL (130-400); RED BLOOD CELL COUNT 2.61 mill/uL (4.2-5.4); RED CELL DISTRIBUTION WIDTH 13.8 % (11.6-14.6)
[2021-04-30 07:50] LABS: CHLORIDE 106 mEq/L (98-107)
[2021-04-30 07:58] LABS: PHOSPHORUS 3.7 mg/dL (2.5-4.9)
[2021-04-30 07:59] LABS: LDL CHOLESTEROL 64 mg/dL (5-100)
[2021-04-30 08:01] LABS: HDL CHOLESTEROL 40 mg/dL (40-59); T4 FREE 1.08 ng/dL (0.76-1.46)
[2021-04-30] MEDS: ALBUTEROL (0.083%) 2.5MG/3ML NEB HHN SCH ×3 (08:06→21:22)
[2021-04-30] MEDS: FAMOTIDINE 20MG TABLET PO SCH ×2 (08:22→21:11)
[2021-04-30] MEDS: HYDROXYCHLOROQUINE SULFATE 200MG TABLET PO SCH ×2 (08:22→18:02)
[2021-04-30] MEDS: PREDNISONE 5MG TABLET PO SCH (08:22)
[2021-04-30] MEDS: METFORMIN HCL 500MG TABLET PO SCH ×2 (08:22→18:02)
[2021-04-30] MEDS: METOCLOPRAMIDE HCL 10MG TABLET PO SCH ×4 (08:22→21:11)
[2021-04-30] MEDS: INSULIN LISPRO 100 UNITS/ML SUBCUT SCH ×3 (08:27→21:00)
[2021-04-30] MEDS: LISINOPRIL 2.5MG TABLET PO SCH (08:28)
[2021-04-30] MEDS ORDERED: HYDROCHLOROTHIAZIDE 25MG TABLET PO SCH (09:00)
[2021-04-30] MEDS: ENOXAPARIN 40MG/0.4ML SYR SUBCUT SCH (11:04)
[2021-04-30] MEDS ORDERED: GADOTERATE MEGLUMINE 5 MMOL/10 ML VIAL IV ONE (11:07)
[2021-04-30] MEDS: BUDESONIDE 0.5MG/2ML NEB HHN SCH (12:00)
[2021-04-30 15:51] LABS: UCG SCREEN NEGATIVE
[2021-04-30 16:16] LABS: *AMPHETAMINES SCREEN URINE NEGATIVE (NEGATIVE); *BARBITURATES SCREEN URINE NEGATIVE (NEGATIVE); *BENZODIAZEPINES SCREEN URINE NEGATIVE (NEGATIVE)
[2021-04-30 16:17] LABS: *COCAINE SCREEN URINE NEGATIVE (NEGATIVE); CANNABINOID URINE SCREEN NEGATIVE (NEGATIVE); OPIATES URINE SCREEN NEGATIVE (NEGATIVE); PHENCYCLIDINE URINE SCREEN NEGATIVE (NEGATIVE)
[2021-04-30 16:18] LABS: METHADONE URINE SCREEN NEGATIVE (NEGATIVE)
[2021-04-30] MEDS: METRONIDAZOLE 500MG TABLET PO SCH (21:11)
[2021-04-30] MEDS: GABAPENTIN 300MG CAPSULE PO SCH (21:12)
[2021-04-30] MEDS: PRAZOSIN HCL 1MG CAPSULE PO SCH (21:12)
[2021-04-30] MEDS: QUETIAPINE FUMARATE 50MG TABLET PO SCH (21:12)
[2021-05-01] VITALS: BP 122/63
[2021-05-01] MEDS: SODIUM CHLORIDE 0.9% 1,000 ML IV SCH ×2 (01:17→15:51)
[2021-05-01] MEDS: ACETAMINOPHEN 325MG TABLET PO PRN (01:47)
[2021-05-01 04:00] VITALS: BP 114/63
[2021-05-01] MEDS: CEFTRIAXONE 1,000 MG in DEXTROSE 5% WATER 50 ML IV SCH (06:18)
[2021-05-01] MEDS: BLOOD SUGAR DIAGNOSTIC STRIP TEST SCH ×4 (06:22→21:04)
[2021-05-01 06:33] LABS: CANCER ANTIGEN 125 5.7 U/mL (0.0-38.1)
[2021-05-01] MEDS: MORPHINE SULFATE 2 MG/ML CPJ (NOT FOR IM USE) IV PRN ×3 (06:52→17:13)
[2021-05-01 07:24] LABS: BASOPHILS % 0.5 % (0.0-2.0); EOSINOPHILS % 0.4 % (0.0-5.0); HEMOGLOBIN. 7.1 g/dL (12.0-16.0); LYMPHOCYTES % 28.6 % (20.0-50.0); MEAN CORPUSCULAR HEMOGLOBIN 28.2 pg (28.0-32.0); MEAN CORPUSCULAR VOLUME 82.8 fL (81.0-99.0); MEAN PLATELET VOLUME 6.9 fl (7.4-10.4); NEUTROPHILS % 62.5 % (40.0-76.0); PLATELET 306 x1000/uL (130-400); RED BLOOD CELL COUNT 2.52 mill/uL (4.2-5.4)
[2021-05-01 07:36] LABS: CHLORIDE 107 mEq/L (98-107)
[2021-05-01 07:42] LABS: PHOSPHORUS 4.7 mg/dL (2.5-4.9)
[2021-05-01 07:43] LABS: TOTAL IRON BINDING CAPACITY 164 ug/dL (250-450)
[2021-05-01] MEDS: INSULIN LISPRO 100 UNITS/ML SUBCUT SCH ×4 (07:50→21:25)
[2021-05-01 07:56] LABS: HEMATOCRIT. 20.9 % (36.0-48.0)
[2021-05-01 08:00] VITALS: BP 118/65
[2021-05-01 08:07] LABS: VITAMIN B12 SERUM 436 pg/mL (211-911)
[2021-05-01] MEDS: FAMOTIDINE 20MG TABLET PO SCH ×2 (09:01→21:04)
[2021-05-01] MEDS: METRONIDAZOLE 500MG TABLET PO SCH (09:01)
[2021-05-01] MEDS: HYDROXYCHLOROQUINE SULFATE 200MG TABLET PO SCH ×2 (09:01→17:11)
[2021-05-01] MEDS: METFORMIN HCL 500MG TABLET PO SCH ×2 (09:16→17:11)
[2021-05-01] MEDS: METOCLOPRAMIDE HCL 10MG TABLET PO SCH ×4 (09:16→21:05)
[2021-05-01] MEDS: LISINOPRIL 2.5MG TABLET PO SCH (09:16)
[2021-05-01] MEDS: PREDNISONE 5MG TABLET PO SCH (09:16)
[2021-05-01] MEDS: HYDROCODONE/ACETAMINOPHEN 5/325MG TABLET PO PRN ×2 (10:00→21:05)
[2021-05-01] MEDS: LIDOCAINE 5% PATCH TOP SCH (10:14)
[2021-05-01] MEDS: ENOXAPARIN 40MG/0.4ML SYR SUBCUT SCH (10:59)
[2021-05-01] MEDS: DIPHENHYDRAMINE 50MG CAPSULE PO PRN (11:04)
[2021-05-01 12:00] VITALS: BP 130/69
[2021-05-01 16:00] VITALS: BP 155/64
[2021-05-01] MEDS: ALBUTEROL (0.083%) 2.5MG/3ML NEB HHN SCH ×2 (17:34→21:00)
[2021-05-01] MEDS: BUDESONIDE 0.5MG/2ML NEB HHN SCH (17:34)
[2021-05-01 20:00] VITALS: BP 149/68
[2021-05-01] MEDS: GABAPENTIN 300MG CAPSULE PO SCH (21:04)
[2021-05-01] MEDS: QUETIAPINE FUMARATE 50MG TABLET PO SCH (21:05)
[2021-05-01] MEDS: PRAZOSIN HCL 1MG CAPSULE PO SCH (21:05)
[2021-05-02] VITALS: BP 131/57
[2021-05-02] MEDS: MORPHINE SULFATE 2 MG/ML CPJ (NOT FOR IM USE) IV PRN ×2 (00:35→11:21)
[2021-05-02] MEDS: ALBUTEROL (0.083%) 2.5MG/3ML NEB HHN SCH ×3 (01:20→15:19)
[2021-05-02 04:00] VITALS: BP 124/67
[2021-05-02] MEDS: CEFTRIAXONE 1,000 MG in DEXTROSE 5% WATER 50 ML IV SCH (05:30)
[2021-05-02] MEDS: SODIUM CHLORIDE 0.9% 1,000 ML IV SCH (05:30)
[2021-05-02] MEDS: HYDROCODONE/ACETAMINOPHEN 5/325MG TABLET PO PRN (05:31)
[2021-05-02 07:16] LABS: BASOPHILS % 0.6 % (0.0-2.0); EOSINOPHILS % 0.6 % (0.0-5.0); HEMATOCRIT. 21.3 % (36.0-48.0); HEMOGLOBIN. 7.2 g/dL (12.0-16.0); LYMPHOCYTES % 31.9 % (20.0-50.0); MEAN CORPUSCULAR HEMOGLOBIN 28.3 pg (28.0-32.0); MEAN PLATELET VOLUME 7.2 fl (7.4-10.4); MONOCYTES % 6.7 % (2.0-8.0); NEUTROPHILS % 60.2 % (40.0-76.0); PLATELET 318 x1000/uL (130-400); RED BLOOD CELL COUNT 2.54 mill/uL (4.2-5.4); RED CELL DISTRIBUTION WIDTH 13.7 % (11.6-14.6)
[2021-05-02 07:22] LABS: TOTAL IRON BINDING CAPACITY 213 ug/dL (250-450)
[2021-05-02 07:31] LABS: FOLIC ACID (FOLATE) SERUM 19.8 ng/mL (>5.38)
[2021-05-02] MEDS: INSULIN LISPRO 100 UNITS/ML SUBCUT SCH ×2 (07:50→12:06)
[2021-05-02] MEDS: BLOOD SUGAR DIAGNOSTIC STRIP TEST SCH ×2 (07:57→11:51)
[2021-05-02 08:00] VITALS: BP 123/65
[2021-05-02] MEDS: LIDOCAINE 5% PATCH TOP SCH (09:26)
[2021-05-02] MEDS: LISINOPRIL 2.5MG TABLET PO SCH (09:27)
[2021-05-02] MEDS: METOCLOPRAMIDE HCL 10MG TABLET PO SCH ×2 (09:27→12:03)
[2021-05-02] MEDS: METFORMIN HCL 500MG TABLET PO SCH (09:27)
[2021-05-02] MEDS: PREDNISONE 5MG TABLET PO SCH (09:27)
[2021-05-02] MEDS: FAMOTIDINE 20MG TABLET PO SCH (09:28)
[2021-05-02] MEDS: HYDROXYCHLOROQUINE SULFATE 200MG TABLET PO SCH (09:28)
[2021-05-02] MEDS ORDERED: LIDOCAINE 5% PATCH TOP SCH (10:00)
[2021-05-02] MEDS ORDERED: NITR-87 MT (11:02)
[2021-05-02] MEDS ORDERED: LIDO700A30 TOP (11:02)
[2021-05-02] MEDS ORDERED: TAMS-11 MT (11:02)
[2021-05-02] MEDS: ENOXAPARIN 40MG/0.4ML SYR SUBCUT SCH (11:20)
[2021-05-02 12:00] VITALS: BP 124/71
[2021-05-02 15:17] VITALS: BP 124/71
[2021-05-03 09:06] LABS: ANTI-DNA DOUBLE STRANDED QUANT < 1 IU/mL (0-9)
[2021-05-04 09:06] LABS: ANA IFA Negative (.)
[2021-05-05 17:09] LABS: ALDOLASE 5.3 U/L (3.3-10.3)
[2021-05-05 19:06] LABS: ACTIN (SMOOTH MUSCLE) ANTIBODY 30 Units (0-19)
[2021-05-06 09:11] LABS: GLOMERULAR BASEMENT MEMB AB 3 units (0-20)
[2021-05-07 13:07] LABS: ANGIOTENSION CONVERTING ENZYME 13 U/L (14-82)
== END 2021-05-02 15:53 | disposition home or self-care (01) | DRG 463 ==
LOC: ER 21:45 → 6EST 04-29 05:36 → EDBEDREQ 04-29 05:39 → EDBEDREQDT 04-29 05:39 → EDBEDREQTM 04-29 05:39 → ENRESERV 04-29 07:39
PROVIDERS: ADMIT Internal Medicine; ATTEND Internal Medicine
DX: N12 Tubulo-interstitial nephritis, not specified as acute or chronic (principal); D69.6 Thrombocytopenia, unspecified; E44.0 Moderate protein-calorie malnutrition; M32.9 Systemic lupus erythematosus, unspecified; E87.1 Hypo-osmolality and hyponatremia; F29 Unspecified psychosis not due to a substance or known physiological condition; E83.51 Hypocalcemia; R16.0 Hepatomegaly, not elsewhere classified; B37.3 Candidiasis of vulva and vagina; D64.9 Anemia, unspecified; E11.65 Type 2 diabetes mellitus with hyperglycemia; I10 Essential (primary) hypertension; J45.909 Unspecified asthma, uncomplicated; R33.9 Retention of urine, unspecified; N28.89 Other specified disorders of kidney and ureter; K21.9 Gastro-esophageal reflux disease without esophagitis; N28.1 Cyst of kidney, acquired; R59.0 Localized enlarged lymph nodes; F32.A Depression, unspecified; M79.0 Rheumatism, unspecified; M48.02 Spinal stenosis, cervical region; R26.2 Difficulty in walking, not elsewhere classified; M50.322 Other cervical disc degeneration at C5-C6 level; D72.810 Lymphocytopenia; Z20.822 Contact with and (suspected) exposure to COVID-19; E78.5 Hyperlipidemia, unspecified; R56.9 Unspecified convulsions; M19.90 Unspecified osteoarthritis, unspecified site; Z90.710 Acquired absence of both cervix and uterus; Z88.8 Allergy status to other drugs, medicaments and biological substances; Z88.5 Allergy status to narcotic agent; Z91.010 Allergy to peanuts; Z79.899 Other long term (current) drug therapy; Z79.01 Long term (current) use of anticoagulants; Z79.4 Long term (current) use of insulin; Z87.440 Personal history of urinary (tract) infections; Z83.3 Family history of diabetes mellitus; Z82.49 Family history of ischemic heart disease and other diseases of the circulatory system; N28.81 Hypertrophy of kidney; Z68.1 Body mass index [BMI] 19.9 or less, adult
CPT/HCPCS: 36415; 70551; 72141; 72146; 72148; 74176; 74183; 80048; 80053; 80061; 80305; 81003; 81025; 82085; 82164; 82378; 82607; 82746; 82962; 83036; 83540; 83550; 83605; 83615; 83735; 84100; 84145; 84439; 84443; 84702; 85025; 85044; 85651; 86160; 86225; 86256; 86301; 86304; 86592; 86850; 86880; 86900; 87077; 87186; 87426; 93970; 99285; A9577; J0696; J1200; J1650; J1815; J2270; J7030; J7060; J7512; J7626; J8597; Q0163; A4315

== ENCOUNTER 2021-05-09 21:03 | Emergency (ER) | payer MEDICAID ==
[~2021-05-09] VITALS: Ht 167.6 cm; Wt 62.3 kg
[~2021-05-09 21:03] MED LIST changes: +AZEL137S7 NS; -CEPH500T MT; +DICL75TA5 PO; -HYDR25TA PO; +LANS15CA17 PO; +LIDO700A30 TOP; +MONT10TA32 PO; +NITR-87 MT; +PRED-276 MT; -PRED10TA MT; +TAMS-11 MT
[2021-05-09] MEDS ORDERED: ONDANSETRON HCL 4MG/2ML INJ IV STA (21:50)
[2021-05-09] MEDS ORDERED: MORPHINE SULFATE 4 MG/ML CPJ (NOT FOR IM USE) IV STA (21:50)
[2021-05-09] MEDS ORDERED: SODIUM CHLORIDE 0.9% 1,000 ML IV ONE (22:00)
[2021-05-09 23:24] LABS: BASOPHILS % 0.2 % (0.0-2.0); EOSINOPHILS % 0.4 % (0.0-5.0); HEMATOCRIT. 22.1 % (36.0-48.0); HEMOGLOBIN. 7.6 g/dL (12.0-16.0); LYMPHOCYTES % 10.2 % (20.0-50.0); MEAN CORPUSCULAR HEMOGLOBIN 28.9 pg (28.0-32.0); MEAN CORPUSCULAR VOLUME 83.7 fL (81.0-99.0); MEAN PLATELET VOLUME 7.4 fl (7.4-10.4); MONOCYTES % 5.2 % (2.0-8.0); PLATELET 358 x1000/uL (130-400); RED BLOOD CELL COUNT 2.64 mill/uL (4.2-5.4); RED CELL DISTRIBUTION WIDTH 14.7 % (11.6-14.6)
[2021-05-09 23:38] LABS: CHLORIDE 92 mEq/L (98-107)
[2021-05-09 23:39] LABS: HCG SCREEN NEGATIVE
[2021-05-09 23:46] LABS: CLARITY URINE CLEAR (CLEAR); COLOR URINE YELLOW (YELLOW); KETONES URINE NEGATIVE (NEGATIVE); LEUKOCYTE ESTERASE URINE 1+ (NEGATIVE); NITRITE URINE NEGATIVE (NEGATIVE); OCCULT BLOOD URINE 2+ (NEGATIVE); PH URINE 6.5 (4.5-8.0); PROTEIN URINE 2+ (NEGATIVE); SPECIFIC GRAVITY URINE 1.015 (1.005-1.030); UROBILINOGEN URINE 0.2 E.U./dL (0.2-1.0)
[2021-05-10 00:14] LABS: *AMPHETAMINES SCREEN URINE NEGATIVE (NEGATIVE); *BENZODIAZEPINES SCREEN URINE NEGATIVE (NEGATIVE); *COCAINE SCREEN URINE NEGATIVE (NEGATIVE); CANNABINOID URINE SCREEN NEGATIVE (NEGATIVE); OPIATES URINE SCREEN NEGATIVE (NEGATIVE); PHENCYCLIDINE URINE SCREEN NEGATIVE (NEGATIVE)
[2021-05-10] MEDS ORDERED: MORPHINE SULFATE 4 MG/ML CPJ (NOT FOR IM USE) IV ONE (01:15)
[2021-05-10] MEDS ORDERED: INSULIN REGULAR (HUMULIN R) UD 100 UNITS/ML SYR SUBCUT ONE (02:15)
[2021-05-10] MEDS: CEFTRIAXONE 1 G PREMIX 50 ML IV SCH ×3 (04:08→06:45)
[2021-05-10] MEDS ORDERED: ONDANSETRON HCL 4MG/2ML INJ IV PRN (06:45)
[2021-05-10] MEDS ORDERED: ACETAMINOPHEN 325MG TABLET PO PRN (06:45)
[2021-05-10] MEDS ORDERED: CLONIDINE 0.1MG TABLET PO PRN (06:45)
[2021-05-10] MEDS ORDERED: DOCUSATE SODIUM 100MG CAPSULE PO PRN (06:45)
[2021-05-10] MEDS ORDERED: GUAIFENESIN 200MG/10ML SUGAR FREE UDC PO PRN (06:45)
[2021-05-10] MEDS ORDERED: MAGNESIUM/ALUMINUM HYDROXIDE/SIMETHICONE 30ML UDC PO PRN (06:45)
[2021-05-10] MEDS ORDERED: LEVOFLOXACIN 500MG PREMIX 100 ML IV SCH (08:00)
[2021-05-10] MEDS ORDERED: DEXTROSE 50% WATER 50ML SYRINGE IV PRN (10:00)
[2021-05-10 11:30] VITALS: BP 135/69
[2021-05-10] MEDS ORDERED: BLOOD SUGAR DIAGNOSTIC STRIP TEST SCH (13:00)
[2021-05-10] MEDS ORDERED: INSULIN LISPRO 100 UNITS/ML SUBCUT SCH (13:20)
[2021-05-10 22:12] LABS: *BARBITURATES SCREEN URINE NEGATIVE (NEGATIVE); METHADONE URINE SCREEN NEGATIVE (NEGATIVE)
== END 2021-05-10 12:00 | disposition left against medical advice (07) ==
LOC: ER 21:03 → EDBEDREQSVC 05-10 07:03 → EDBEDREQTM 05-10 07:03 → ER 05-10 12:00 → CANBEDREQ 05-10 12:01
DX: N10 Acute pyelonephritis (principal); D64.9 Anemia, unspecified; E11.65 Type 2 diabetes mellitus with hyperglycemia; I31.9 Disease of pericardium, unspecified; I10 Essential (primary) hypertension; Z79.899 Other long term (current) drug therapy; Z20.822 Contact with and (suspected) exposure to COVID-19
CPT/HCPCS: 36415; 71045; 80053; 80305; 81003; 82962; 83605; 83690; 83880; 84484; 84703; 85025; 86850; 86900; 86901; 87040; 87086; 87426; 93005; 96361; 96365; 96367; 96372; 96375; 96376; 99285; J0696; J1815; J1956; J2270; J2405; J7030; Z7610; A4315

== ENCOUNTER 2021-09-19 00:07 | Inpatient (IN) | payer MEDICAID ==
[~2021-09-19] VITALS: Ht 162.6 cm; Wt 79.4 kg
[~2021-09-19 00:07] MED LIST changes: +ALBU18HF2 IH; +ASPI-1406 MT; +BUPR150T3 PO; +COLC0.6C3 PO; +HYDR-4350 MT; +HYDR25TA PO; -LANS15CA17 PO; +LORA10TA7 PO; +MONT-39 PO; -MONT10TA32 PO; -NITR-87 MT; +ONDA8TAB59 PO; -PRAZ2CAP2 PO; -QUET100T34 PO; +QUET50TA23 PO; +SENN-308
[2021-09-19] MEDS ORDERED: ONDANSETRON HCL 4MG/2ML INJ IV STA (02:11)
[2021-09-19] MEDS ORDERED: MORPHINE SULFATE 2 MG/ML CPJ (NOT FOR IM USE) IV ONE (02:15)
[2021-09-19] MEDS: QUETIAPINE FUMARATE 50MG TABLET PO SCH (02:59)
[2021-09-19 03:01] LABS: BASOPHILS % 0.4 % (0.0-2.0); EOSINOPHILS % 0.2 % (0.0-5.0); HEMATOCRIT. 35.1 % (36.0-48.0); HEMOGLOBIN. 11.7 g/dL (12.0-16.0); LYMPHOCYTES % 21.2 % (20.0-50.0); MEAN CORPUSCULAR HEMOGLOBIN 28.9 pg (28.0-32.0); MEAN CORPUSCULAR VOLUME 86.3 fL (81.0-99.0); MEAN PLATELET VOLUME 8.1 fl (7.4-10.4); MONOCYTES % 7.8 % (2.0-8.0); NEUTROPHILS % 70.4 % (40.0-76.0); PLATELET 319 x1000/uL (130-400); RED BLOOD CELL COUNT 4.07 mill/uL (4.2-5.4); RED CELL DISTRIBUTION WIDTH 13.8 % (11.6-14.6)
[2021-09-19 03:03] LABS: CLARITY URINE CLEAR (CLEAR); COLOR URINE YELLOW (YELLOW); KETONES URINE NEGATIVE (NEGATIVE); LEUKOCYTE ESTERASE URINE NEGATIVE (NEGATIVE); NITRITE URINE NEGATIVE (NEGATIVE); OCCULT BLOOD URINE TRACE (NEGATIVE); PROTEIN URINE 2+ (NEGATIVE); SPECIFIC GRAVITY URINE 1.034 (1.005-1.030); UROBILINOGEN URINE 0.2 E.U./dL (0.2-1.0)
[2021-09-19 03:13] LABS: CHLORIDE 96 mEq/L (98-107)
[2021-09-19] MEDS ORDERED: DIPHENHYDRAMINE 50MG/ML VIAL IV ONE (03:30)
[2021-09-19] MEDS ORDERED: INSULIN LISPRO 100 UNITS/ML SUBCUT NR (03:30)
[2021-09-19] MEDS ORDERED: SODIUM CHLORIDE 0.9% 1,000 ML IV ONE (03:30)
[2021-09-19 03:47] LABS: HCG SCREEN NEGATIVE
[2021-09-19] MEDS ORDERED: HALOPERIDOL LACTATE 5MG/ML VIAL IM ONE (04:15)
[2021-09-19] MEDS ORDERED: ONDANSETRON HCL 4MG/2ML INJ IV PRN (10:00)
[2021-09-19] MEDS ORDERED: DEXTROSE 50% WATER 50ML SYRINGE IV PRN (10:00)
[2021-09-19] MEDS ORDERED: INSULIN GLARGINE 100 UNITS/ML SUBCUT NR (11:00)
[2021-09-19] MEDS ORDERED: INSULIN GLARGINE 100 UNITS/ML SUBCUT SCH ×2 (11:00→22:00)
[2021-09-19 12:00] VITALS: BP 103/52
[2021-09-19] MEDS: SODIUM CHLORIDE 0.9% 1,000 ML IV SCH ×2 (12:00→23:49)
[2021-09-19 13:00] VITALS: BP 103/52
[2021-09-19] MEDS: BLOOD SUGAR DIAGNOSTIC STRIP TEST SCH ×3 (13:19→21:44)
[2021-09-19] MEDS: GABAPENTIN 300MG CAPSULE PO SCH ×2 (14:26→21:43)
[2021-09-19] MEDS: INSULIN LISPRO 100 UNITS/ML SUBCUT SCH ×3 (14:29→21:46)
[2021-09-19 16:00] VITALS: BP 117/63
[2021-09-19] MEDS ORDERED: HYDROCODONE/ACETAMINOPHEN 10/325MG TABLET PO PRN (18:45)
[2021-09-19 20:00] VITALS: BP 141/64
[2021-09-19] MEDS ORDERED: FAMOTIDINE 20MG TABLET PO SCH (21:00)
[2021-09-19] MEDS ORDERED: MORPHINE SULFATE 4 MG/ML CPJ (NOT FOR IM USE) IV NR (23:15)
[2021-09-20] VITALS: BP 127/73
[2021-09-20] MEDS: QUETIAPINE FUMARATE 50MG TABLET PO SCH (01:58)
[2021-09-20 04:00] VITALS: BP 122/64
[2021-09-20] MEDS: GABAPENTIN 300MG CAPSULE PO SCH ×2 (05:57→14:00)
[2021-09-20] MEDS: BLOOD SUGAR DIAGNOSTIC STRIP TEST SCH ×2 (06:20→13:19)
[2021-09-20 08:00] VITALS: BP 118/60
[2021-09-20] MEDS: INSULIN LISPRO 100 UNITS/ML SUBCUT SCH ×2 (09:51→14:20)
[2021-09-20] MEDS ORDERED: INSULIN GLARGINE 100 UNITS/ML SUBCUT SCH (10:00)
[2021-09-20 10:27] VITALS: BP 118/60
[2021-09-20] MEDS ORDERED: LACTULOSE 20G/30ML UDC PO NR (10:45)
[2021-09-20 12:00] VITALS: BP 112/54
[2021-09-20] MEDS: SODIUM CHLORIDE 0.9% 1,000 ML IV SCH (13:40)
== END 2021-09-20 17:00 | disposition home or self-care (01) | DRG 420 ==
LOC: ER 00:47 → 6EST 04:56
PROVIDERS: ADMIT Internal Medicine; ATTEND Internal Medicine
DX: E11.65 Type 2 diabetes mellitus with hyperglycemia (principal); E44.1 Mild protein-calorie malnutrition; E87.8 Other disorders of electrolyte and fluid balance, not elsewhere classified; E87.1 Hypo-osmolality and hyponatremia; K59.00 Constipation, unspecified; Z88.2 Allergy status to sulfonamides; Z88.8 Allergy status to other drugs, medicaments and biological substances; Z79.899 Other long term (current) drug therapy; Z79.82 Long term (current) use of aspirin; Z91.010 Allergy to peanuts; Z79.51 Long term (current) use of inhaled steroids; Z79.4 Long term (current) use of insulin; Z79.84 Long term (current) use of oral hypoglycemic drugs; Z68.30 Body mass index [BMI] 30.0-30.9, adult
CPT/HCPCS: 36415; 74176; 80053; 81003; 82962; 84703; 85025; 87077; 87186; 99285; J1200; J1630; J1815; J2270; J2405

== ENCOUNTER 2021-10-21 10:52 | Emergency (ER) | payer MEDICAID ==
[~2021-10-21] VITALS: Ht 162.6 cm; Wt 78.0 kg
[2021-10-21 11:00] VITALS: BP 141/90
[2021-10-21] MEDS ORDERED: ASPIRIN 81MG TABLET PO ONE (20:15)
[2021-10-21] MEDS ORDERED: NITROGLYCERIN 0.4MG TABLET SL SL PRN (20:15)
== END 2021-10-21 23:54 | disposition left against medical advice (07) ==
LOC: ER 10:52
DX: R07.89 Other chest pain (principal); M32.9 Systemic lupus erythematosus, unspecified; R00.0 Tachycardia, unspecified; E11.9 Type 2 diabetes mellitus without complications; Z88.2 Allergy status to sulfonamides; Z88.6 Allergy status to analgesic agent; Z88.8 Allergy status to other drugs, medicaments and biological substances; Z91.010 Allergy to peanuts; Z79.899 Other long term (current) drug therapy
CPT/HCPCS: 93005; 99283

== ENCOUNTER 2021-12-18 22:50 | Inpatient (IN) | payer MEDICAID ==
[~2021-12-18] VITALS: Ht 162.6 cm; Wt 82.1 kg
[2021-12-19 00:11] LABS: BASOPHILS % 0.4 % (0.0-2.0); EOSINOPHILS % 0.4 % (0.0-5.0); HEMOGLOBIN. 11.7 g/dL (12.0-16.0); LYMPHOCYTES % 18.4 % (20.0-50.0); MEAN CORPUSCULAR HEMOGLOBIN 30.3 pg (28.0-32.0); MEAN CORPUSCULAR VOLUME 88.1 fL (81.0-99.0); MEAN PLATELET VOLUME 7.9 fl (7.4-10.4); MONOCYTES % 4.8 % (2.0-8.0); PLATELET 343 x1000/uL (130-400); RED BLOOD CELL COUNT 3.86 mill/uL (4.2-5.4)
[2021-12-19] MEDS ORDERED: MORPHINE SULFATE 4 MG/ML CPJ (NOT FOR IM USE) IV ONE (00:30)
[2021-12-19 00:35] LABS: CHLORIDE 94 mEq/L (98-107); ETHANOL BLOOD < 10 mg/dL
[2021-12-19] MEDS ORDERED: ASPIRIN 325MG EC TABLET PO ONE (00:45)
[2021-12-19] MEDS ORDERED: COLCHICINE 0.6MG TABLET PO ONE (00:45)
[2021-12-19 00:55] LABS: HCG SCREEN NEGATIVE
[2021-12-19] MEDS ORDERED: INSULIN REGULAR (HUMULIN R) 300UNITS/3ML VIAL SUBCUT NR (01:15)
[2021-12-19] MEDS ORDERED: ONDANSETRON HCL 4MG/2ML INJ IV ONE (01:45)
[2021-12-19] MEDS ORDERED: SODIUM CHLORIDE 0.9% 1,000 ML IV ONE (01:45)
[2021-12-19 02:18] LABS: *AMPHETAMINES SCREEN URINE NEGATIVE (NEGATIVE); *BARBITURATES SCREEN URINE NEGATIVE (NEGATIVE); *BENZODIAZEPINES SCREEN URINE NEGATIVE (NEGATIVE); *COCAINE SCREEN URINE NEGATIVE (NEGATIVE); CANNABINOID URINE SCREEN NEGATIVE (NEGATIVE); METHADONE URINE SCREEN NEGATIVE (NEGATIVE); OPIATES URINE SCREEN NEGATIVE (NEGATIVE); PHENCYCLIDINE URINE SCREEN NEGATIVE (NEGATIVE)
[2021-12-19] MEDS ORDERED: METOCLOPRAMIDE HCL 10MG/2ML VIAL IV ONE (04:15)
[2021-12-19 05:40] VITALS: BP 121/79
[2021-12-19] MEDS ORDERED: PRAZ2CAP2 PO (07:59)
[2021-12-19] MEDS ORDERED: ALBU2.5V13 IH (07:59)
[2021-12-19] MEDS ORDERED: HYDR-4009 MT (07:59)
[2021-12-19] MEDS ORDERED: LISI2.5T47 PO (07:59)
[2021-12-19] MEDS ORDERED: LOSA100T32 PO (07:59)
[2021-12-19] MEDS ORDERED: HYDR25TA PO (07:59)
[2021-12-19] MEDS ORDERED: CELE200C PO (07:59)
[2021-12-19] MEDS ORDERED: PRED10TA23 PO (07:59)
[2021-12-19] MEDS ORDERED: COLC0.6C3 PO (07:59)
[2021-12-19] MEDS ORDERED: GABA-290 PO (07:59)
[2021-12-19] MEDS ORDERED: QUET150T2 PO (07:59)
[2021-12-19] MEDS ORDERED: POLY250017 MT (07:59)
[2021-12-19] MEDS ORDERED: ONDA8TAB13 PO (07:59)
[2021-12-19] MEDS ORDERED: BUPR-114 PO (07:59)
[2021-12-19] MEDS ORDERED: MONT-39 PO (07:59)
[2021-12-19] MEDS ORDERED: LORA10TA7 PO (07:59)
[2021-12-19] MEDS ORDERED: ATOR20TA65 PO (07:59)
[2021-12-19] MEDS ORDERED: OMEP40CA20 PO (07:59)
[2021-12-19 08:00] VITALS: BP 140/73
[2021-12-19] MEDS ORDERED: ONDANSETRON HCL 4MG/2ML INJ IV PRN (08:15)
[2021-12-19] MEDS ORDERED: MEDICATION NOT ON FORMULARY EA (Escitalopram Oxalate 1 TAB) PO SCH (08:15)
[2021-12-19] MEDS ORDERED: DEXTROSE 50% WATER 50ML SYRINGE IV PRN (08:15)
[2021-12-19] MEDS ORDERED: INSULIN GLARGINE 100 UNITS/ML SUBCUT SCH (08:25)
[2021-12-19] MEDS ORDERED: NALOXONE HCL 0.4MG/ML VIAL IV PRN (08:30)
[2021-12-19] MEDS: LISINOPRIL 10MG TABLET PO SCH (08:43)
[2021-12-19] MEDS: LOSARTAN POTASSIUM 100 MG TABLET PO SCH (08:43)
[2021-12-19] MEDS: HYDROXYCHLOROQUINE SULFATE 200MG TABLET PO SCH ×2 (08:44→16:17)
[2021-12-19] MEDS: ATORVASTATIN CALCIUM 20MG TABLET PO SCH (08:44)
[2021-12-19] MEDS: FAMOTIDINE 20MG TABLET PO SCH ×2 (08:44→20:35)
[2021-12-19] MEDS: INSULIN LISPRO 100 UNITS/ML SUBCUT SCH ×4 (08:46→20:48)
[2021-12-19] MEDS ORDERED: PREDNISONE 10 MG PO SCH (09:00)
[2021-12-19] MEDS: BUPROPION HCL 150MG SR TABLET PO SCH ×2 (09:00→17:49)
[2021-12-19] MEDS ORDERED: MEDICATION NOT ON FORMULARY EA (Gabapentin 600 MG) PO SCH (09:00)
[2021-12-19] MEDS: CITALOPRAM HYDROBROMIDE 10MG TABLET PO SCH (09:10)
[2021-12-19] MEDS: HYDROCODONE/ACETAMINOPHEN 10/325MG TABLET PO PRN ×3 (09:10→22:24)
[2021-12-19] MEDS: MONTELUKAST SODIUM 10MG TABLET PO SCH (09:10)
[2021-12-19] MEDS: PREDNISONE 10MG TABLET PO SCH (09:11)
[2021-12-19] MEDS: GABAPENTIN 300MG CAPSULE PO SCH ×3 (09:11→16:18)
[2021-12-19 09:54] LABS: BASOPHILS % 0.4 % (0.0-2.0); EOSINOPHILS % 0.3 % (0.0-5.0); HEMATOCRIT. 31.7 % (36.0-48.0); HEMOGLOBIN. 11.1 g/dL (12.0-16.0); LYMPHOCYTES % 23.4 % (20.0-50.0); MEAN CORPUSCULAR HEMOGLOBIN 30.7 pg (28.0-32.0); MEAN CORPUSCULAR VOLUME 87.4 fL (81.0-99.0); MEAN PLATELET VOLUME 7.9 fl (7.4-10.4); MONOCYTES % 5.1 % (2.0-8.0); NEUTROPHILS % 70.8 % (40.0-76.0); PLATELET 344 x1000/uL (130-400); RED BLOOD CELL COUNT 3.63 mill/uL (4.2-5.4); RED CELL DISTRIBUTION WIDTH 14.2 % (11.6-14.6)
[2021-12-19] MEDS: INSULIN GLARGINE 100 UNITS/ML SUBCUT SCH ×2 (10:24→20:48)
[2021-12-19] MEDS ORDERED: ONDANSETRON 4MG ODT PO PRN (11:00)
[2021-12-19 11:21] LABS: HDL CHOLESTEROL 44 mg/dL (40-59)
[2021-12-19] MEDS: IPRATROPIUM/ALBUTEROL 0.5-3(2.5)MG/3ML NEB HHN SCH ×3 (11:54→20:58)
[2021-12-19 12:00] VITALS: BP 156/90
[2021-12-19 12:23] LABS: CHLORIDE 98 mEq/L (98-107); LDL CHOLESTEROL 114 mg/dL (5-100)
[2021-12-19] MEDS: BLOOD SUGAR DIAGNOSTIC STRIP TEST SCH ×3 (13:15→20:19)
[2021-12-19 15:56] VITALS: BP 132/71
[2021-12-19 20:00] VITALS: BP 132/80
[2021-12-19] MEDS: QUETIAPINE FUMARATE 50MG TABLET PO SCH (20:35)
[2021-12-19] MEDS ORDERED: QUETIAPINE FUMARATE 150 MG PO SCH (21:00)
[2021-12-20] VITALS: BP 106/50
[2021-12-20] MEDS: IPRATROPIUM/ALBUTEROL 0.5-3(2.5)MG/3ML NEB HHN SCH ×6 (00:47→21:56)
[2021-12-20 04:00] VITALS: BP 119/72
[2021-12-20] MEDS: ACETAMINOPHEN 325MG TABLET PO PRN ×4 (04:22→21:41)
[2021-12-20] MEDS: HYDROCODONE/ACETAMINOPHEN 10/325MG TABLET PO PRN ×5 (04:24→21:59)
[2021-12-20] MEDS ORDERED: INSULIN LISPRO 100 UNITS/ML SUBCUT NR (05:00)
[2021-12-20] MEDS: BLOOD SUGAR DIAGNOSTIC STRIP TEST SCH ×4 (06:20→20:48)
[2021-12-20] MEDS: INSULIN LISPRO 100 UNITS/ML SUBCUT SCH ×6 (06:33→21:51)
[2021-12-20 07:38] LABS: BASOPHILS % 0.3 % (0.0-2.0); EOSINOPHILS % 0.1 % (0.0-5.0); HEMATOCRIT. 27.5 % (36.0-48.0); HEMOGLOBIN. 9.6 g/dL (12.0-16.0); LYMPHOCYTES % 14.5 % (20.0-50.0); MEAN CORPUSCULAR HEMOGLOBIN 30.8 pg (28.0-32.0); MEAN CORPUSCULAR VOLUME 87.9 fL (81.0-99.0); MEAN PLATELET VOLUME 7.8 fl (7.4-10.4); MONOCYTES % 6.8 % (2.0-8.0); NEUTROPHILS % 78.3 % (40.0-76.0); PLATELET 308 x1000/uL (130-400); RED BLOOD CELL COUNT 3.13 mill/uL (4.2-5.4); RED CELL DISTRIBUTION WIDTH 14.4 % (11.6-14.6)
[2021-12-20 08:00] VITALS: BP 127/70
[2021-12-20] MEDS: CITALOPRAM HYDROBROMIDE 10MG TABLET PO SCH (08:06)
[2021-12-20] MEDS: PREDNISONE 10MG TABLET PO SCH (08:06)
[2021-12-20] MEDS: GABAPENTIN 300MG CAPSULE PO SCH ×3 (08:06→18:42)
[2021-12-20] MEDS: LISINOPRIL 10MG TABLET PO SCH ×3 (08:07→09:58)
[2021-12-20] MEDS: ATORVASTATIN CALCIUM 20MG TABLET PO SCH (08:07)
[2021-12-20] MEDS: BUPROPION HCL 150MG SR TABLET PO SCH ×2 (08:07→18:42)
[2021-12-20] MEDS: FAMOTIDINE 20MG TABLET PO SCH ×2 (08:07→21:40)
[2021-12-20] MEDS: LOSARTAN POTASSIUM 100 MG TABLET PO SCH (08:07)
[2021-12-20] MEDS: MONTELUKAST SODIUM 10MG TABLET PO SCH (08:08)
[2021-12-20] MEDS: HYDROXYCHLOROQUINE SULFATE 200MG TABLET PO SCH ×2 (09:53→18:52)
[2021-12-20] MEDS: INSULIN GLARGINE 100 UNITS/ML SUBCUT SCH ×2 (09:55→21:52)
[2021-12-20] MEDS: ONDANSETRON HCL 4MG/2ML INJ IV PRN ×2 (10:09→13:55)
[2021-12-20] MEDS ORDERED: PHENOL/SODIUM PHENOLATE 1.4% SRPAY 177ML MM ONE (16:00)
[2021-12-20] MEDS ORDERED: PHENOL/SODIUM PHENOLATE 1.4% SRPAY 177ML MM PRN (16:30)
[2021-12-20] MEDS: METOCLOPRAMIDE HCL 10MG/2ML VIAL IV SCH ×2 (18:42→23:05)
[2021-12-20 20:00] VITALS: BP 129/58
[2021-12-20] MEDS: QUETIAPINE FUMARATE 50MG TABLET PO SCH (21:40)
[2021-12-21] VITALS: BP 105/61
[2021-12-21] MEDS: IPRATROPIUM/ALBUTEROL 0.5-3(2.5)MG/3ML NEB HHN SCH ×4 (01:56→12:04)
[2021-12-21 04:00] VITALS: BP 124/57
[2021-12-21] MEDS: METOCLOPRAMIDE HCL 10MG/2ML VIAL IV SCH ×2 (05:33→12:35)
[2021-12-21] MEDS: ACETAMINOPHEN 325MG TABLET PO PRN (05:34)
[2021-12-21] MEDS: HYDROCODONE/ACETAMINOPHEN 10/325MG TABLET PO PRN (05:34)
[2021-12-21] MEDS: INSULIN LISPRO 100 UNITS/ML SUBCUT SCH ×3 (06:35→12:37)
[2021-12-21] MEDS: BLOOD SUGAR DIAGNOSTIC STRIP TEST SCH ×2 (06:36→12:26)
[2021-12-21 07:11] LABS: CHLORIDE 99 mEq/L (98-107)
[2021-12-21 08:00] VITALS: BP 114/57
[2021-12-21] MEDS ORDERED: LACTULOSE 20G/30ML UDC PO NR (08:30)
[2021-12-21] MEDS: CITALOPRAM HYDROBROMIDE 10MG TABLET PO SCH (08:42)
[2021-12-21] MEDS: BUPROPION HCL 150MG SR TABLET PO SCH (08:42)
[2021-12-21] MEDS: LOSARTAN POTASSIUM 100 MG TABLET PO SCH (08:42)
[2021-12-21] MEDS: ATORVASTATIN CALCIUM 20MG TABLET PO SCH (08:42)
[2021-12-21] MEDS: PREDNISONE 10MG TABLET PO SCH (08:42)
[2021-12-21] MEDS: MONTELUKAST SODIUM 10MG TABLET PO SCH (08:42)
[2021-12-21] MEDS: LISINOPRIL 10MG TABLET PO SCH (08:43)
[2021-12-21] MEDS: HYDROXYCHLOROQUINE SULFATE 200MG TABLET PO SCH (08:43)
[2021-12-21] MEDS: GABAPENTIN 300MG CAPSULE PO SCH ×2 (08:45→12:35)
[2021-12-21] MEDS: FAMOTIDINE 20MG TABLET PO SCH (08:53)
[2021-12-21] MEDS ORDERED: INSULIN GLARGINE 100 UNITS/ML SUBCUT SCH (10:00)
[2021-12-21 12:00] VITALS: BP 110/59
[2021-12-21] MEDS ORDERED: INSULIN LISPRO 100 UNITS/ML SUBCUT SCH (12:20)
[2021-12-21 13:45] VITALS: BP 110/59
== END 2021-12-21 15:35 | disposition home or self-care (01) | DRG 207 ==
LOC: ER 22:50 → MICUSO 12-19 02:30 → 6WST 12-19 06:25
PROVIDERS: ADMIT Internal Medicine; ATTEND Internal Medicine
PROC: 02HV33Z Insertion of Infusion Device into Superior Vena Cava, Percutaneous Approach (ICD-10-PCS; principal; 2021-12-19)
PROC: B548ZZA Ultrasonography of Superior Vena Cava, Guidance (ICD-10-PCS; 2021-12-19)
PROC: B548ZZA Ultrasonography of Superior Vena Cava, Guidance (ICD-10-PCS; 2021-12-19)
DX: I31.9 Disease of pericardium, unspecified (principal); M32.9 Systemic lupus erythematosus, unspecified; E87.8 Other disorders of electrolyte and fluid balance, not elsewhere classified; E87.1 Hypo-osmolality and hyponatremia; E11.65 Type 2 diabetes mellitus with hyperglycemia; E78.5 Hyperlipidemia, unspecified; M94.0 Chondrocostal junction syndrome [Tietze]; I10 Essential (primary) hypertension; J45.909 Unspecified asthma, uncomplicated; Z76.5 Malingerer [conscious simulation]; Z88.2 Allergy status to sulfonamides; Z88.8 Allergy status to other drugs, medicaments and biological substances; Z79.899 Other long term (current) drug therapy; Z90.710 Acquired absence of both cervix and uterus; Z79.4 Long term (current) use of insulin; Z82.49 Family history of ischemic heart disease and other diseases of the circulatory system; Z91.81 History of falling
CPT/HCPCS: 36415; 36573; 71045; 74018; 80048; 80053; 80061; 80305; 80320; 82962; 83036; 83605; 83880; 84484; 84703; 85025; 85651; 93005; 93306; 94640; 99285; C1725; C1769; J1815; J2270; J2405; J2765; J7030; J7512; Q0162; G0480

== ENCOUNTER 2022-01-23 03:47 | Inpatient (IN) | payer MEDICAID ==
[~2022-01-23] VITALS: Ht 167.6 cm; Wt 81.2 kg
[~2022-01-23 03:47] MED LIST changes: -ALBU18HF2 IH; +ALBU2.5V13 IH; -ASPI-1406 MT; +ATOR20TA65 PO; +BUPR-114 PO; -BUPR150T3 PO; +CELE200C PO; +GABA-290 PO; -GABA-532 PO; +HYDR-4009 MT; -HYDR-4350 MT; -LIDO700A30 TOP; +LOSA100T32 PO; -METF-873 PO; +OMEP40CA20 PO; +ONDA8TAB13 PO; -ONDA8TAB59 PO; +POLY250017 PO; +PRAZ2CAP2 PO; -PRED-276 MT; +PRED10TA23 PO; -PRED2.5T4 PO; +QUET150T2 PO; -QUET50TA23 PO; -SENN-308; -TAMS-11 MT
[2022-01-23 04:59] LABS: BASOPHILS % 0.5 % (0.0-2.0); EOSINOPHILS % 0.4 % (0.0-5.0); HEMATOCRIT. 30.5 % (36.0-48.0); HEMOGLOBIN. 10.4 g/dL (12.0-16.0); LYMPHOCYTES % 25.2 % (20.0-50.0); MEAN CORPUSCULAR HEMOGLOBIN 30.1 pg (28.0-32.0); MEAN CORPUSCULAR VOLUME 88.3 fL (81.0-99.0); MEAN PLATELET VOLUME 7.3 fl (7.4-10.4); MONOCYTES % 5.4 % (2.0-8.0); NEUTROPHILS % 68.5 % (40.0-76.0); PLATELET 333 x1000/uL (130-400); RED BLOOD CELL COUNT 3.46 mill/uL (4.2-5.4)
[2022-01-23 05:01] LABS: CHLORIDE 102 mEq/L (98-107)
[2022-01-23] MEDS ORDERED: MORPHINE SULFATE 4 MG/ML CPJ (NOT FOR IM USE) IV ONE (06:00)
[2022-01-23] MEDS ORDERED: DIPHENHYDRAMINE 50MG/ML VIAL IV ONE (07:45)
[2022-01-23 09:19] VITALS: BP 149/90
[2022-01-23 09:30] VITALS: BP 139/79
[2022-01-23] MEDS ORDERED: GABA800T97 PO (10:00)
[2022-01-23] MEDS ORDERED: HYDR20TA24 PO (10:00)
[2022-01-23] MEDS ORDERED: FERR325T6 PO (10:01)
[2022-01-23] MEDS ORDERED: AMLO5TAB88 PO (10:02)
[2022-01-23] MEDS ORDERED: IBUP-2028 PO (10:06)
[2022-01-23] MEDS ORDERED: ASPI-1497 PO (10:06)
[2022-01-23] MEDS ORDERED: MAGN200T5 PO (10:08)
[2022-01-23] MEDS ORDERED: NITR100C PO (10:11)
[2022-01-23] MEDS ORDERED: INSU100I28 SQ (10:15)
[2022-01-23] MEDS ORDERED: PNEUMOCOCCAL VACCINE IM ONE (10:15)
[2022-01-23] MEDS ORDERED: INSLIS SUBCUT ×2 (10:15)
[2022-01-23] MEDS ORDERED: AZEL137S7 BOTHNSTRLS (10:15)
[2022-01-23 10:27] VITALS: BP 149/90
[2022-01-23 12:00] VITALS: BP 160/89
[2022-01-23] MEDS ORDERED: DEXTROSE 50% WATER 50ML SYRINGE IV PRN ×2 (12:45→13:00)
[2022-01-23] MEDS ORDERED: HYDROCODONE/ACETAMINOPHEN 5/325MG TABLET PO PRN (12:45)
[2022-01-23] MEDS ORDERED: MORPHINE SULFATE 2 MG/ML CPJ (NOT FOR IM USE) IV PRN (12:45)
[2022-01-23] MEDS ORDERED: NALOXONE HCL 0.4MG/ML VIAL IV PRN (13:00)
[2022-01-23] MEDS ORDERED: ACETAMINOPHEN 325MG TABLET PO PRN (13:00)
[2022-01-23] MEDS ORDERED: CLONIDINE 0.1MG TABLET PO PRN (13:00)
[2022-01-23] MEDS ORDERED: ONDANSETRON HCL 4MG/2ML INJ IV PRN ×2 (13:00→13:15)
[2022-01-23] MEDS ORDERED: MAGNESIUM/ALUMINUM HYDROXIDE/SIMETHICONE 30ML UDC PO PRN (13:00)
[2022-01-23] MEDS ORDERED: INSULIN LISPRO 100 UNITS/ML SUBCUT SCH ×2 (13:00→17:20)
[2022-01-23] MEDS ORDERED: AMLODIPINE 5MG TABLET PO SCH (13:15)
[2022-01-23] MEDS ORDERED: HYDROCODONE/ACETAMINOPHEN 7.5/325MG TABLET PO PRN (14:15)
[2022-01-23] MEDS ORDERED: LIDOCAINE HCL 1% 30ML VIAL (10MG/ML) ONE (14:53)
[2022-01-23 15:24] VITALS: BP 158/79
[2022-01-23] MEDS: ENOXAPARIN 40MG/0.4ML SYR SUBCUT SCH (15:27)
[2022-01-23] MEDS: GABAPENTIN 300MG CAPSULE PO SCH ×2 (15:27→21:47)
[2022-01-23] MEDS: DIPHENHYDRAMINE 50MG/ML VIAL IV PRN ×2 (15:28→21:53)
[2022-01-23] MEDS: HYDROCHLOROTHIAZIDE 25MG TABLET PO SCH (15:28)
[2022-01-23] MEDS: LORATADINE 10MG TABLET PO SCH (15:28)
[2022-01-23] MEDS: LOSARTAN POTASSIUM 100 MG TABLET PO SCH (15:28)
[2022-01-23] MEDS: BLOOD SUGAR DIAGNOSTIC STRIP TEST SCH ×4 (15:29→21:49)
[2022-01-23 16:48] LABS: HCG SCREEN NEGATIVE
[2022-01-23] MEDS ORDERED: GABAPENTIN 300MG CAPSULE PO SCH (17:00)
[2022-01-23] MEDS: HYDROXYCHLOROQUINE SULFATE 200MG TABLET PO SCH (17:00)
[2022-01-23] MEDS: AMLODIPINE 5MG TABLET PO SCH (17:27)
[2022-01-23] MEDS: METOCLOPRAMIDE HCL 10MG TABLET PO SCH ×2 (17:27→21:49)
[2022-01-23] MEDS: DICLOFENAC SODIUM 75MG DR (EC) TABLET PO SCH (17:27)
[2022-01-23] MEDS: MONTELUKAST SODIUM 10MG TABLET PO SCH (17:27)
[2022-01-23] MEDS: INSULIN LISPRO 100 UNITS/ML SUBCUT SCH ×2 (17:30→21:49)
[2022-01-23] MEDS ORDERED: FOLIC ACID 1MG TABLET PO SCH (18:45)
[2022-01-23 19:02] LABS: CLARITY URINE CLEAR (CLEAR); COLOR URINE YELLOW (YELLOW); KETONES URINE NEGATIVE (NEGATIVE); LEUKOCYTE ESTERASE URINE NEGATIVE (NEGATIVE); NITRITE URINE NEGATIVE (NEGATIVE); OCCULT BLOOD URINE 1+ (NEGATIVE); PROTEIN URINE 3+ (NEGATIVE); UROBILINOGEN URINE 0.2 E.U./dL (0.2-1.0)
[2022-01-23 19:24] LABS: *AMPHETAMINES SCREEN URINE NEGATIVE (NEGATIVE); *BARBITURATES SCREEN URINE NEGATIVE (NEGATIVE); *BENZODIAZEPINES SCREEN URINE NEGATIVE (NEGATIVE); *COCAINE SCREEN URINE NEGATIVE (NEGATIVE); CANNABINOID URINE SCREEN NEGATIVE (NEGATIVE); METHADONE URINE SCREEN NEGATIVE (NEGATIVE); PHENCYCLIDINE URINE SCREEN NEGATIVE (NEGATIVE)
[2022-01-23 20:00] VITALS: BP 145/82
[2022-01-23 20:44] LABS: OPIATES URINE SCREEN PRESUMTIVE POSITIVE (NEGATIVE)
[2022-01-23] MEDS ORDERED: PRAZOSIN HCL 1MG CAPSULE PO SCH (21:00)
[2022-01-23] MEDS ORDERED: ATORVASTATIN CALCIUM 20MG TABLET PO SCH (21:00)
[2022-01-23] MEDS: MYCOPHENOLATE MOFETIL 500MG TABLET PO SCH (21:46)
[2022-01-23] MEDS: FAMOTIDINE 20MG TABLET PO SCH (21:46)
[2022-01-23] MEDS: COLCHICINE 0.6MG TABLET PO SCH (21:47)
[2022-01-23] MEDS: INSULIN GLARGINE 100 UNITS/ML SUBCUT SCH (22:09)
[2022-01-23] MEDS ORDERED: QUETIAPINE FUMARATE 50MG TABLET PO SCH (22:45)
[2022-01-23] MEDS ORDERED: HYDROCODONE/ACETAMINOPHEN 10/325MG TABLET PO PRN (22:46)
[2022-01-23] MEDS ORDERED: MORPHINE SULFATE 2 MG/ML CPJ (NOT FOR IM USE) IV NR (23:00)
[2022-01-23] MEDS: METHYLPREDNISOLONE SOD SUCC 40 MG/ML VIAL IV SCH (23:14)
[2022-01-24 00:04] VITALS: BP 130/64
[2022-01-24 04:00] VITALS: BP 127/69
[2022-01-24] MEDS: METHYLPREDNISOLONE SOD SUCC 40 MG/ML VIAL IV SCH ×3 (06:24→17:53)
[2022-01-24] MEDS: BLOOD SUGAR DIAGNOSTIC STRIP TEST SCH ×6 (06:33→17:05)
[2022-01-24 07:03] LABS: CHLORIDE 99 mEq/L (98-107)
[2022-01-24 07:19] LABS: HDL CHOLESTEROL 44 mg/dL (40-59); LDL CHOLESTEROL 113 mg/dL (5-100); PHOSPHORUS 3.6 mg/dL (2.5-4.9); T4 FREE 1.07 ng/dL (0.76-1.46)
[2022-01-24 07:24] LABS: HEMATOCRIT. 29.3 % (36.0-48.0); HEMOGLOBIN. 10.3 g/dL (12.0-16.0); MEAN CORPUSCULAR HEMOGLOBIN 30.4 pg (28.0-32.0); MEAN CORPUSCULAR VOLUME 86.9 fL (81.0-99.0); MEAN PLATELET VOLUME 7.8 fl (7.4-10.4); PLATELET 301 x1000/uL (130-400); RED BLOOD CELL COUNT 3.38 mill/uL (4.2-5.4); RED CELL DISTRIBUTION WIDTH 13.9 % (11.6-14.6)
[2022-01-24] MEDS: INSULIN LISPRO 100 UNITS/ML SUBCUT SCH ×3 (07:31→17:55)
[2022-01-24 08:00] VITALS: BP 96/59
[2022-01-24] MEDS: FAMOTIDINE 20MG TABLET PO SCH (08:57)
[2022-01-24] MEDS: DICLOFENAC SODIUM 75MG DR (EC) TABLET PO SCH ×2 (08:57→17:52)
[2022-01-24] MEDS: HYDROXYCHLOROQUINE SULFATE 200MG TABLET PO SCH ×2 (08:58→17:52)
[2022-01-24] MEDS: COLCHICINE 0.6MG TABLET PO SCH (08:58)
[2022-01-24] MEDS ORDERED: METHOTREXATE SODIUM 2 . 5MG TABLET PO SCH (09:00)
[2022-01-24] MEDS ORDERED: GABAPENTIN 300MG CAPSULE PO SCH (09:00)
[2022-01-24] MEDS ORDERED: ASPIRIN 81MG EC TABLET PO SCH (09:00)
[2022-01-24] MEDS ORDERED: HYDROCORTISONE 10MG TABLET PO SCH (09:00)
[2022-01-24] MEDS: HYDROCHLOROTHIAZIDE 25MG TABLET PO SCH (09:00)
[2022-01-24] MEDS: MYCOPHENOLATE MOFETIL 500MG TABLET PO SCH (09:00)
[2022-01-24] MEDS: LOSARTAN POTASSIUM 100 MG TABLET PO SCH (09:00)
[2022-01-24] MEDS: AMLODIPINE 5MG TABLET PO SCH ×2 (09:01→17:52)
[2022-01-24] MEDS: METOCLOPRAMIDE HCL 10MG TABLET PO SCH ×3 (09:01→17:52)
[2022-01-24] MEDS: LORATADINE 10MG TABLET PO SCH (09:04)
[2022-01-24] MEDS: INSULIN GLARGINE 100 UNITS/ML SUBCUT SCH (11:04)
[2022-01-24 12:00] VITALS: BP 124/77
[2022-01-24] MEDS: GABAPENTIN 300MG CAPSULE PO SCH ×2 (12:37→17:53)
[2022-01-24] MEDS: ENOXAPARIN 40MG/0.4ML SYR SUBCUT SCH (14:12)
[2022-01-24] MEDS ORDERED: SODIUM POLYSTYRENE SULFONATE 15 G/60 ML BOT PO NR (14:15)
[2022-01-24] MEDS ORDERED: CELL5 PO (14:38)
[2022-01-24] MEDS ORDERED: FOLI-43 MT (14:53)
[2022-01-24 16:00] VITALS: BP 118/64
[2022-01-24] MEDS ORDERED: INSULIN LISPRO 100 UNITS/ML SUBCUT NR (17:15)
[2022-01-24] MEDS: MONTELUKAST SODIUM 10MG TABLET PO SCH (17:52)
[2022-01-24 18:14] VITALS: BP 132/70
[2022-01-25 09:07] LABS: G6PD RBC 3.45 x10E6/uL (3.77-5.28)
[2022-01-25 15:08] LABS: G6PD QUANTITATIVE 394 (127-427)
[2022-01-25 15:32] LABS: PLATELET ESTIMATE NORMAL
[2022-01-26 10:06] LABS: ANGIOTENSION CONVERTING ENZYME 31 U/L (14-82)
[2022-01-26 17:06] LABS: ANTI-CARDIOLIPIN AB IGA < 9 APL U/mL (0-11); ANTI-CARDIOLIPIN AB IGG < 9 GPL U/mL (0-14); ANTI-CARDIOLIPIN AB IGM < 9 MPL U/mL (0-12)
[2022-01-27] MEDS ORDERED: METHYLPREDNISOLONE SOD SUCC 40 MG/ML VIAL IV SCH (02:00)
[2022-01-27 09:10] LABS: ALDOLASE 4.6 U/L (3.3-10.3)
[2022-01-27 10:10] LABS: ACTIN (SMOOTH MUSCLE) ANTIBODY 24 Units (0-19)
[2022-01-27 13:07] LABS: ANTI-DNA DOUBLE STRANDED QUANT < 1 IU/mL (0-9); ANTI-JO 1 ABS <0.2 AI (0.0-0.9); RNP ANTIBODY 2.6 AI (0.0-0.9)
[2022-01-27 19:09] LABS: ANTI-MYELOPEROXIDASE AB < 0.2 units (0.0-0.9); ANTI-PROTEINASE 3 ABS < 0.2 units (0.0-0.9)
[2022-01-28 13:06] LABS: ATYPICAL P-ANCA <1:20 titer (Neg:<1:20); CYTOPLASMIC C-ANCA <1:20 titer (Neg:<1:20); PERINUCLEAR P-ANCA <1:20 titer (Neg:<1:20)
[2022-01-29 06:11] LABS: ANA IFA Negative (.); CYC CITRULLINATED PEP IgG/IgA 5 units (0-19)
[2022-02-10 14:11] LABS: IFE CRYOPRECIPITANT Comment: (.)
== END 2022-01-24 18:45 | disposition home or self-care (01) | DRG 203 ==
LOC: ER 03:47 → ENRESERV 08:37 → 3WST 08:59
PROVIDERS: ADMIT Internal Medicine; ATTEND Internal Medicine
PROC: 02HV33Z Insertion of Infusion Device into Superior Vena Cava, Percutaneous Approach (ICD-10-PCS; principal; 2022-01-23)
PROC: B548ZZA Ultrasonography of Superior Vena Cava, Guidance (ICD-10-PCS; 2022-01-23)
PROC: B5181ZA Fluoroscopy of Superior Vena Cava using Low Osmolar Contrast, Guidance (ICD-10-PCS; 2022-01-23)
DX: M94.0 Chondrocostal junction syndrome [Tietze] (principal); I27.20 Pulmonary hypertension, unspecified; M32.9 Systemic lupus erythematosus, unspecified; E11.319 Type 2 diabetes mellitus with unspecified diabetic retinopathy without macular edema; E11.65 Type 2 diabetes mellitus with hyperglycemia; E78.5 Hyperlipidemia, unspecified; I10 Essential (primary) hypertension; J45.909 Unspecified asthma, uncomplicated; F31.9 Bipolar disorder, unspecified; I77.6 Arteritis, unspecified; M19.90 Unspecified osteoarthritis, unspecified site; M77.41 Metatarsalgia, right foot; M77.42 Metatarsalgia, left foot; Z88.2 Allergy status to sulfonamides; Z88.3 Allergy status to other anti-infective agents; Z88.6 Allergy status to analgesic agent; Z88.5 Allergy status to narcotic agent; Z91.010 Allergy to peanuts; Z82.49 Family history of ischemic heart disease and other diseases of the circulatory system; Z90.710 Acquired absence of both cervix and uterus; Z79.899 Other long term (current) drug therapy; Z79.82 Long term (current) use of aspirin; Z85.41 Personal history of malignant neoplasm of cervix uteri; Z91.199 Patient's noncompliance with other medical treatment and regimen due to unspecified reason; W18.2XXA Fall in (into) shower or empty bathtub, initial encounter; Y93.E1 Activity, personal bathing and showering; Y92.89 Other specified places as the place of occurrence of the external cause; Y99.8 Other external cause status
CPT/HCPCS: 36415; 36573; 70486; 71045; 73502; 80048; 80053; 80061; 80076; 80305; 81003; 82085; 82164; 82595; 82955; 82962; 83036; 83520; 83735; 83880; 84100; 84132; 84439; 84443; 84484; 84703; 85025; 85041; 85379; 86147; 86160; 86200; 86225; 86235; 86256; 86431; 86880; 90732; 93005; 93306; 93970; 97162; 99285; C1725; J1200; J1650; J1815; J2270; J2405; J2920; J3490; J7517; J8597; J8610

== ENCOUNTER 2022-03-16 15:26 | Inpatient (IN) | payer MEDICAID ==
[~2022-03-16] VITALS: Ht 162.6 cm; Wt 93.0 kg
[~2022-03-16 15:26] MED LIST changes: +AMLO5TAB88 PO; +ASPI-1497 PO; +AZEL137S7 BOTHNSTRLS; -BUPR-114 PO; -CELE200C PO; +CELL5 PO; +FERR325T6 PO; -FLUT1BLS IH; +FOLI-43 MT; +GABA800T97 PO; -HYDR-4009 MT; +HYDR20TA24 PO; +IBUP-2028 PO; +INSLIS SUBCUT; -INSU100I24 SQ; +INSU100I28 SQ; -INSU100I32 SQ; -LISI2.5T47 PO; +MAGN200T5 PO; +NITR100C PO; -ONDA8TAB13 PO; -PRED10TA23 PO; -QUET150T2 PO
[2022-03-16] MEDS ORDERED: IPRATROPIUM BROMIDE (0.02%) 0.5MG/2.5ML NEB HHN STA (15:44)
[2022-03-16] MEDS ORDERED: METHYLPREDNISOLONE SOD SUCC 125 MG/2 ML VIAL IV STA (15:44)
[2022-03-16] MEDS ORDERED: ALBUTEROL (0.083%) 2.5MG/3ML NEB HHN STA (15:44)
[2022-03-16] MEDS ORDERED: NITROGLYCERIN OINT 1GM/INCH UDPKT TD ONE (15:45)
[2022-03-16 16:24] LABS: BASOPHILS % 0.3 % (0.0-2.0); EOSINOPHILS % 0.2 % (0.0-5.0); HEMATOCRIT. 29.1 % (36.0-48.0); HEMOGLOBIN. 8.7 g/dL (12.0-16.0); LYMPHOCYTES % 7.6 % (20.0-50.0); MEAN CORPUSCULAR HEMOGLOBIN 30.2 pg (28.0-32.0); MEAN PLATELET VOLUME 7.3 fl (7.4-10.4); MONOCYTES % 5.5 % (2.0-8.0); NEUTROPHILS % 86.4 % (40.0-76.0); PLATELET 329 x1000/uL (130-400); RED BLOOD CELL COUNT 2.88 mill/uL (4.2-5.4); RED CELL DISTRIBUTION WIDTH 15.6 % (11.6-14.6)
[2022-03-16 16:26] LABS: CHLORIDE 108 mEq/L (98-107)
[2022-03-16 16:41] LABS: HCG SCREEN NEGATIVE
[2022-03-16] MEDS ORDERED: FUROSEMIDE 20MG/2ML VIAL IVP ONE (17:00)
[2022-03-16] MEDS ORDERED: CEFTRIAXONE 1 G PREMIX 50 ML IV ONE (17:00)
[2022-03-16] MEDS ORDERED: HYDROCODONE/ACETAMINOPHEN 5/325MG TABLET PO ONE (17:00)
[2022-03-16] MEDS ORDERED: AZITHROMYCIN 500MG/250ML 250 ML IV ONE (17:00)
[2022-03-16] MEDS ORDERED: FUROSEMIDE 20MG/2ML VIAL IVP NR (18:15)
[2022-03-16] MEDS ORDERED: HYDROCODONE/ACETAMINOPHEN 5/325MG TABLET PO NR (18:15)
[2022-03-16] MEDS ORDERED: CEFTRIAXONE 1 G PREMIX 50 ML IV NR (18:15)
[2022-03-16] MEDS ORDERED: AZITHROMYCIN 500MG/250ML 250 ML IV NR (18:15)
[2022-03-16 21:55] VITALS: BP 140/55
[2022-03-16 23:07] VITALS: BP 145/72
[2022-03-17] VITALS (8 sets, daily range): BP systolic 113–152; BP diastolic 52–97
[2022-03-17] MEDS ORDERED: DEXTROSE 50% WATER 50ML SYRINGE IV PRN (00:45)
[2022-03-17] MEDS: IPRATROPIUM/ALBUTEROL 0.5-3(2.5)MG/3ML NEB HHN PRN ×3 (00:55→21:57)
[2022-03-17] MEDS: MORPHINE SULFATE 2 MG/ML CPJ (NOT FOR IM USE) IV PRN ×3 (01:17→23:03)
[2022-03-17] MEDS: INSULIN LISPRO 100 UNITS/ML SUBCUT SCH ×5 (01:18→21:19)
[2022-03-17 02:24] LABS: CREATINE KINASE MB FRACTION 1.6 ng/mL (0.5-3.6)
[2022-03-17] MEDS ORDERED: CYCL5TAB MT (03:22)
[2022-03-17] MEDS ORDERED: QUET300T2 MT (03:32)
[2022-03-17] MEDS ORDERED: GABA-532 PO (03:52)
[2022-03-17] MEDS ORDERED: METO-293 PO (03:58)
[2022-03-17] MEDS ORDERED: SENN-257 MT (04:03)
[2022-03-17] MEDS ORDERED: CHOLECALCIFEROL PO (04:03)
[2022-03-17] MEDS ORDERED: MELA5TAB19 PO (04:04)
[2022-03-17] MEDS ORDERED: METH-773 PO (04:06)
[2022-03-17] MEDS ORDERED: BISA10SU62 RC (04:13)
[2022-03-17] MEDS ORDERED: MEPRON PO (04:13)
[2022-03-17 06:01] LABS: CHLORIDE 101 mEq/L (98-107)
[2022-03-17] MEDS: BLOOD SUGAR DIAGNOSTIC STRIP TEST SCH ×4 (06:04→20:55)
[2022-03-17] MEDS: HYDROCODONE/ACETAMINOPHEN 5/325MG TABLET PO PRN ×2 (06:05→10:28)
[2022-03-17] MEDS ORDERED: ASPI-986 MT (06:12)
[2022-03-17 06:15] LABS: HEMATOCRIT. 28.1 % (36.0-48.0); HEMOGLOBIN. 9.5 g/dL (12.0-16.0); MEAN CORPUSCULAR HEMOGLOBIN 30.5 pg (28.0-32.0); MEAN CORPUSCULAR VOLUME 90.1 fL (81.0-99.0); MEAN PLATELET VOLUME 8.1 fl (7.4-10.4); PLATELET 336 x1000/uL (130-400); RED BLOOD CELL COUNT 3.12 mill/uL (4.2-5.4); RED CELL DISTRIBUTION WIDTH 14.7 % (11.6-14.6)
[2022-03-17] MEDS ORDERED: LIDOCAINE HCL 1% 30ML VIAL (10MG/ML) ONE (08:56)
[2022-03-17] MEDS ORDERED: NALOXONE HCL 0.4MG/ML VIAL IV PRN (09:30)
[2022-03-17] MEDS ORDERED: ASPIRIN 325MG TABLET PO SCH (13:00)
[2022-03-17] MEDS ORDERED: AMLODIPINE 5MG TABLET PO SCH (13:00)
[2022-03-17] MEDS ORDERED: SODIUM POLYSTYRENE SULFONATE 15 G/60 ML BOT PO NR (13:00)
[2022-03-17] MEDS ORDERED: BISACODYL 10MG SUPP RC PRN (13:00)
[2022-03-17] MEDS ORDERED: AZELASTINE HCL 137MCG/SPRAY NASAL PUMP BOTHNSTRLS PRN (13:00)
[2022-03-17] MEDS ORDERED: CLONIDINE 0.1MG TABLET PO PRN (13:30)
[2022-03-17 14:06] LABS: PLATELET ESTIMATE NORMAL
[2022-03-17] MEDS: AMLODIPINE 2.5MG TABLET PO SCH ×2 (14:20→17:00)
[2022-03-17] MEDS: METHOCARBAMOL 500MG TABLET PO SCH ×3 (14:20→21:14)
[2022-03-17] MEDS: MONTELUKAST SODIUM 10MG TABLET PO SCH (17:39)
[2022-03-17] MEDS: HYDROXYCHLOROQUINE SULFATE 200MG TABLET PO SCH (17:39)
[2022-03-17] MEDS: SENNOSIDES 8.6MG TABLET PO SCH (17:39)
[2022-03-17] MEDS: DICLOFENAC SODIUM 75MG DR (EC) TABLET PO SCH (17:39)
[2022-03-17] MEDS: METOCLOPRAMIDE HCL 10MG TABLET PO SCH (17:40)
[2022-03-17] MEDS: CEFTRIAXONE 1,000 MG in DEXTROSE 5% WATER 50 ML IV SCH (17:40)
[2022-03-17] MEDS ORDERED: AZITHROMYCIN 500 MG in DEXT 5% WATER 250 ML IV SCH (18:00)
[2022-03-17 19:27] LABS: *AMPHETAMINES SCREEN URINE NEGATIVE (NEGATIVE); *BARBITURATES SCREEN URINE NEGATIVE (NEGATIVE); *BENZODIAZEPINES SCREEN URINE NEGATIVE (NEGATIVE); *COCAINE SCREEN URINE NEGATIVE (NEGATIVE); CANNABINOID URINE SCREEN NEGATIVE (NEGATIVE); METHADONE URINE SCREEN NEGATIVE (NEGATIVE); PHENCYCLIDINE URINE SCREEN NEGATIVE (NEGATIVE)
[2022-03-17 19:32] LABS: OPIATES URINE SCREEN PRESUMTIVE POSITIVE (NEGATIVE)
[2022-03-17] MEDS ORDERED: FUROSEMIDE 20MG/2ML VIAL IVP NR (20:15)
[2022-03-17] MEDS: ATORVASTATIN CALCIUM 20MG TABLET PO SCH (21:11)
[2022-03-17] MEDS: GABAPENTIN 300MG CAPSULE PO SCH (21:13)
[2022-03-18] VITALS: BP 152/87
[2022-03-18] MEDS: QUETIAPINE FUMARATE 50MG TABLET PO SCH ×2 (00:48→21:57)
[2022-03-18] MEDS: INSULIN GLARGINE 100 UNITS/ML SUBCUT SCH ×3 (00:48→22:03)
[2022-03-18 04:12] VITALS: BP 108/61
[2022-03-18 05:49] LABS: BASOPHILS % 0.4 % (0.0-2.0); EOSINOPHILS % 0.3 % (0.0-5.0); HEMATOCRIT. 23.3 % (36.0-48.0); HEMOGLOBIN. 7.9 g/dL (12.0-16.0); LYMPHOCYTES % 15.6 % (20.0-50.0); MEAN CORPUSCULAR HEMOGLOBIN 30.3 pg (28.0-32.0); MEAN PLATELET VOLUME 7.2 fl (7.4-10.4); NEUTROPHILS % 77.7 % (40.0-76.0); PLATELET 286 x1000/uL (130-400); RED BLOOD CELL COUNT 2.62 mill/uL (4.2-5.4); RED CELL DISTRIBUTION WIDTH 14.6 % (11.6-14.6)
[2022-03-18] MEDS: BLOOD SUGAR DIAGNOSTIC STRIP TEST SCH ×4 (06:26→21:14)
[2022-03-18 07:01] LABS: CHLORIDE 98 mEq/L (98-107)
[2022-03-18 08:00] VITALS: BP 116/8
[2022-03-18] MEDS: SENNOSIDES 8.6MG TABLET PO SCH ×2 (08:46→17:44)
[2022-03-18] MEDS: METHOCARBAMOL 500MG TABLET PO SCH ×4 (08:46→21:56)
[2022-03-18] MEDS: COLCHICINE 0.6MG TABLET PO SCH (08:47)
[2022-03-18] MEDS: HYDROCHLOROTHIAZIDE 25MG TABLET PO SCH (08:47)
[2022-03-18] MEDS: DICLOFENAC SODIUM 75MG DR (EC) TABLET PO SCH ×2 (08:47→17:44)
[2022-03-18] MEDS: GABAPENTIN 300MG CAPSULE PO SCH ×2 (08:47→21:55)
[2022-03-18] MEDS: LOSARTAN POTASSIUM 100 MG TABLET PO SCH (08:47)
[2022-03-18] MEDS: FOLIC ACID 1MG TABLET PO SCH (08:48)
[2022-03-18] MEDS: METOCLOPRAMIDE HCL 10MG TABLET PO SCH ×3 (08:48→17:44)
[2022-03-18] MEDS: AMLODIPINE 2.5MG TABLET PO SCH ×2 (08:48→17:44)
[2022-03-18] MEDS: ASPIRIN 81MG EC TABLET PO SCH (08:48)
[2022-03-18] MEDS: HYDROXYCHLOROQUINE SULFATE 200MG TABLET PO SCH ×2 (08:48→17:45)
[2022-03-18] MEDS: LORATADINE 10MG TABLET PO SCH (09:02)
[2022-03-18] MEDS: INSULIN LISPRO 100 UNITS/ML SUBCUT SCH ×4 (09:03→22:03)
[2022-03-18 11:17] LABS: BG BASE EXCESS 4.4 mmol/L (-2.0-2.0); BG CARBOXYHEMOGLOBIN 0.8 % (0.5-1.5); BG DEOXYHEMOGLOBIN 4.9 % (0.0-5.0); BG FRACTION INSPIRED OXYGEN 30; BG HCO3 ACT 29.4 mmol/L (22.0-26.0); BG OXYGEN SATURATION 95.1 % (92.0-98.5); BG OXYHEMOGLOBIN 94.3 % (94.0-97.0); BG PCO2 46.3 mmHg (35.0-45.0); BG PO2 77.9 mmHg (75.0-100.0); BG SAMPLE SITE LEFT RADIAL; BG TOTAL HEMOGLOBIN 8.8 g/dL (12.0-18.0); BG VENT MODE NASAL CANNULA
[2022-03-18 12:00] VITALS: BP 115/71
[2022-03-18] MEDS: MORPHINE SULFATE 2 MG/ML CPJ (NOT FOR IM USE) IV PRN ×2 (14:14→22:14)
[2022-03-18 16:00] VITALS: BP 123/71
[2022-03-18] MEDS: AZITHROMYCIN 500 MG TABLET PO SCH (17:45)
[2022-03-18] MEDS: CEFTRIAXONE 1,000 MG in DEXTROSE 5% WATER 50 ML IV SCH (17:47)
[2022-03-18] MEDS: MONTELUKAST SODIUM 10MG TABLET PO SCH (17:54)
[2022-03-18 20:04] VITALS: BP 119/76
[2022-03-18] MEDS: ATORVASTATIN CALCIUM 20MG TABLET PO SCH (21:56)
[2022-03-18] MEDS ORDERED: IOHEXOL-350 100 ML BOTTLE ONE (22:27)
[2022-03-19] VITALS (7 sets, daily range): BP systolic 110–141; BP diastolic 65–86
[2022-03-19] MEDS: MORPHINE SULFATE 2 MG/ML CPJ (NOT FOR IM USE) IV PRN ×3 (05:55→22:10)
[2022-03-19] MEDS: BLOOD SUGAR DIAGNOSTIC STRIP TEST SCH ×4 (06:08→21:11)
[2022-03-19 06:50] LABS: BASOPHILS % 0.4 % (0.0-2.0); EOSINOPHILS % 1.7 % (0.0-5.0); HEMATOCRIT. 25.1 % (36.0-48.0); HEMOGLOBIN. 8.8 g/dL (12.0-16.0); LYMPHOCYTES % 30.7 % (20.0-50.0); MEAN CORPUSCULAR HEMOGLOBIN 30.8 pg (28.0-32.0); MEAN CORPUSCULAR VOLUME 88.3 fL (81.0-99.0); MEAN PLATELET VOLUME 6.8 fl (7.4-10.4); MONOCYTES % 7.2 % (2.0-8.0); PLATELET 321 x1000/uL (130-400); RED BLOOD CELL COUNT 2.84 mill/uL (4.2-5.4); RED CELL DISTRIBUTION WIDTH 14.5 % (11.6-14.6)
[2022-03-19 07:09] LABS: HCG SCREEN NEGATIVE
[2022-03-19 07:14] LABS: CHLORIDE 105 mEq/L (98-107)
[2022-03-19] MEDS: INSULIN LISPRO 100 UNITS/ML SUBCUT SCH ×4 (07:20→21:00)
[2022-03-19 07:39] LABS: T4 FREE 1.25 ng/dL (0.76-1.46); TOTAL IRON BINDING CAPACITY 164 ug/dL (250-450)
[2022-03-19] MEDS: COLCHICINE 0.6MG TABLET PO SCH (08:35)
[2022-03-19] MEDS: HYDROXYCHLOROQUINE SULFATE 200MG TABLET PO SCH ×2 (08:35→17:18)
[2022-03-19] MEDS: DICLOFENAC SODIUM 75MG DR (EC) TABLET PO SCH ×2 (08:35→17:18)
[2022-03-19] MEDS: FOLIC ACID 1MG TABLET PO SCH (08:35)
[2022-03-19] MEDS: METHOCARBAMOL 500MG TABLET PO SCH ×4 (08:35→21:24)
[2022-03-19] MEDS: SENNOSIDES 8.6MG TABLET PO SCH ×2 (08:35→17:18)
[2022-03-19] MEDS: ASPIRIN 81MG EC TABLET PO SCH (08:35)
[2022-03-19] MEDS: METOCLOPRAMIDE HCL 10MG TABLET PO SCH ×3 (08:35→17:18)
[2022-03-19] MEDS: GABAPENTIN 300MG CAPSULE PO SCH ×2 (08:35→21:24)
[2022-03-19] MEDS: LOSARTAN POTASSIUM 100 MG TABLET PO SCH (08:35)
[2022-03-19] MEDS: AMLODIPINE 2.5MG TABLET PO SCH ×2 (08:35→17:24)
[2022-03-19] MEDS: LORATADINE 10MG TABLET PO SCH (08:35)
[2022-03-19] MEDS: HYDROCHLOROTHIAZIDE 25MG TABLET PO SCH (08:36)
[2022-03-19] MEDS: INSULIN GLARGINE 100 UNITS/ML SUBCUT SCH ×2 (12:42→21:25)
[2022-03-19] MEDS ORDERED: LACTULOSE 20G/30ML UDC PO NR (13:45)
[2022-03-19] MEDS: AZITHROMYCIN 500 MG TABLET PO SCH (17:18)
[2022-03-19] MEDS: MONTELUKAST SODIUM 10MG TABLET PO SCH (17:18)
[2022-03-19] MEDS: CEFTRIAXONE 1,000 MG in DEXTROSE 5% WATER 50 ML IV SCH (17:18)
[2022-03-19] MEDS: ATORVASTATIN CALCIUM 40MG TABLET PO SCH (21:24)
[2022-03-19] MEDS: QUETIAPINE FUMARATE 50MG TABLET PO SCH (21:25)
[2022-03-20 04:12] VITALS: BP 117/72
[2022-03-20] MEDS: BLOOD SUGAR DIAGNOSTIC STRIP TEST SCH ×4 (06:25→20:24)
[2022-03-20] MEDS: MORPHINE SULFATE 2 MG/ML CPJ (NOT FOR IM USE) IV PRN ×2 (06:46→12:53)
[2022-03-20] MEDS: INSULIN LISPRO 100 UNITS/ML SUBCUT SCH ×4 (07:20→20:25)
[2022-03-20 08:00] VITALS: BP 136/70
[2022-03-20] MEDS: GABAPENTIN 300MG CAPSULE PO SCH ×2 (09:16→20:43)
[2022-03-20] MEDS: ASPIRIN 81MG EC TABLET PO SCH (09:16)
[2022-03-20] MEDS: DICLOFENAC SODIUM 75MG DR (EC) TABLET PO SCH ×2 (09:16→17:45)
[2022-03-20] MEDS: METOCLOPRAMIDE HCL 10MG TABLET PO SCH ×3 (09:16→17:41)
[2022-03-20] MEDS: SENNOSIDES 8.6MG TABLET PO SCH ×2 (09:17→17:41)
[2022-03-20] MEDS: COLCHICINE 0.6MG TABLET PO SCH (09:17)
[2022-03-20] MEDS: HYDROXYCHLOROQUINE SULFATE 200MG TABLET PO SCH ×2 (09:17→17:41)
[2022-03-20] MEDS: LOSARTAN POTASSIUM 100 MG TABLET PO SCH (09:17)
[2022-03-20] MEDS: HYDROCHLOROTHIAZIDE 25MG TABLET PO SCH (09:17)
[2022-03-20] MEDS: FOLIC ACID 1MG TABLET PO SCH (09:17)
[2022-03-20] MEDS: AMLODIPINE 2.5MG TABLET PO SCH ×2 (09:18→17:40)
[2022-03-20] MEDS: LORATADINE 10MG TABLET PO SCH (09:24)
[2022-03-20] MEDS: METHOCARBAMOL 500MG TABLET PO SCH ×4 (09:24→20:43)
[2022-03-20] MEDS: INSULIN GLARGINE 100 UNITS/ML SUBCUT SCH ×2 (09:25→20:46)
[2022-03-20 12:00] VITALS: BP 131/68
[2022-03-20] MEDS ORDERED: SODIUM CHLORIDE 45ML SPRAY NS PRN (13:30)
[2022-03-20] MEDS ORDERED: FLUCONAZOLE 100MG TABLET PO NR (14:00)
[2022-03-20 16:00] VITALS: BP 131/68
[2022-03-20] MEDS: CEFTRIAXONE 1,000 MG in DEXTROSE 5% WATER 50 ML IV SCH (17:42)
[2022-03-20] MEDS: MONTELUKAST SODIUM 10MG TABLET PO SCH (17:45)
[2022-03-20] MEDS: AZITHROMYCIN 500 MG TABLET PO SCH (18:50)
[2022-03-20 20:00] VITALS: BP 157/87
[2022-03-20] MEDS: ATORVASTATIN CALCIUM 40MG TABLET PO SCH (20:43)
[2022-03-20] MEDS: QUETIAPINE FUMARATE 50MG TABLET PO SCH (20:44)
[2022-03-20 21:54] LABS: VITAMIN B12 SERUM 976 pg/mL (211-911)
[2022-03-21] VITALS (8 sets, daily range): BP systolic 119–148; BP diastolic 70–89
[2022-03-21] MEDS: MORPHINE SULFATE 2 MG/ML CPJ (NOT FOR IM USE) IV PRN ×4 (01:39→22:01)
[2022-03-21] MEDS: HYDROCODONE/ACETAMINOPHEN 5/325MG TABLET PO PRN (04:50)
[2022-03-21 06:42] LABS: BASOPHILS % 0.3 % (0.0-2.0); EOSINOPHILS % 1.9 % (0.0-5.0); HEMATOCRIT. 26.6 % (36.0-48.0); HEMOGLOBIN. 9.1 g/dL (12.0-16.0); LYMPHOCYTES % 32.1 % (20.0-50.0); MEAN CORPUSCULAR HEMOGLOBIN 29.9 pg (28.0-32.0); MEAN CORPUSCULAR VOLUME 87.1 fL (81.0-99.0); MONOCYTES % 6.6 % (2.0-8.0); NEUTROPHILS % 59.1 % (40.0-76.0); PLATELET 316 x1000/uL (130-400); RED BLOOD CELL COUNT 3.06 mill/uL (4.2-5.4); RED CELL DISTRIBUTION WIDTH 14.5 % (11.6-14.6)
[2022-03-21 06:52] LABS: CHLORIDE 104 mEq/L (98-107)
[2022-03-21] MEDS: BLOOD SUGAR DIAGNOSTIC STRIP TEST SCH ×4 (06:54→20:57)
[2022-03-21] MEDS: LOSARTAN POTASSIUM 100 MG TABLET PO SCH (08:57)
[2022-03-21] MEDS: GABAPENTIN 300MG CAPSULE PO SCH ×2 (08:57→20:53)
[2022-03-21] MEDS: COLCHICINE 0.6MG TABLET PO SCH (08:57)
[2022-03-21] MEDS: DICLOFENAC SODIUM 75MG DR (EC) TABLET PO SCH ×2 (08:58→17:36)
[2022-03-21] MEDS: HYDROCHLOROTHIAZIDE 25MG TABLET PO SCH (08:58)
[2022-03-21] MEDS: METOCLOPRAMIDE HCL 10MG TABLET PO SCH ×3 (08:58→17:36)
[2022-03-21] MEDS: HYDROXYCHLOROQUINE SULFATE 200MG TABLET PO SCH ×2 (08:58→17:36)
[2022-03-21] MEDS: ASPIRIN 81MG EC TABLET PO SCH (08:58)
[2022-03-21] MEDS: LORATADINE 10MG TABLET PO SCH (08:58)
[2022-03-21] MEDS: FOLIC ACID 1MG TABLET PO SCH (08:58)
[2022-03-21] MEDS: SENNOSIDES 8.6MG TABLET PO SCH ×2 (08:58→17:36)
[2022-03-21] MEDS: AMLODIPINE 2.5MG TABLET PO SCH ×2 (08:59→17:36)
[2022-03-21] MEDS: METHOCARBAMOL 500MG TABLET PO SCH ×4 (08:59→20:54)
[2022-03-21] MEDS: INSULIN LISPRO 100 UNITS/ML SUBCUT SCH ×4 (09:08→21:06)
[2022-03-21] MEDS: INSULIN GLARGINE 100 UNITS/ML SUBCUT SCH ×2 (09:09→21:06)
[2022-03-21] MEDS ORDERED: FUROSEMIDE 40MG/4ML VIAL IVP NR (10:45)
[2022-03-21] MEDS: CEFTRIAXONE 1,000 MG in DEXTROSE 5% WATER 50 ML IV SCH (17:36)
[2022-03-21] MEDS: PREDNISONE 20MG TABLET PO SCH (17:36)
[2022-03-21] MEDS: MONTELUKAST SODIUM 10MG TABLET PO SCH (17:36)
[2022-03-21] MEDS: ATORVASTATIN CALCIUM 40MG TABLET PO SCH (20:53)
[2022-03-21] MEDS: QUETIAPINE FUMARATE 50MG TABLET PO SCH (20:55)
[2022-03-22] VITALS (9 sets, daily range): BP systolic 124–168; BP diastolic 62–81
[2022-03-22] MEDS: BLOOD SUGAR DIAGNOSTIC STRIP TEST SCH ×2 (06:10→11:50)
[2022-03-22] MEDS ORDERED: HYDROCODONE/ACETAMINOPHEN 5/325MG TABLET PO PRN (06:45)
[2022-03-22] MEDS ORDERED: MORPHINE SULFATE 2 MG/ML CPJ (NOT FOR IM USE) IV PRN (06:45)
[2022-03-22 07:01] LABS: BASOPHILS % 0.6 % (0.0-2.0); EOSINOPHILS % 0.2 % (0.0-5.0); HEMATOCRIT. 27.6 % (36.0-48.0); HEMOGLOBIN. 9.5 g/dL (12.0-16.0); LYMPHOCYTES % 10.4 % (20.0-50.0); MEAN CORPUSCULAR HEMOGLOBIN 29.9 pg (28.0-32.0); MEAN CORPUSCULAR VOLUME 86.5 fL (81.0-99.0); MONOCYTES % 3.6 % (2.0-8.0); NEUTROPHILS % 85.2 % (40.0-76.0); PLATELET 354 x1000/uL (130-400); RED BLOOD CELL COUNT 3.19 mill/uL (4.2-5.4); RED CELL DISTRIBUTION WIDTH 14.4 % (11.6-14.6)
[2022-03-22 07:20] LABS: CHLORIDE 101 mEq/L (98-107)
[2022-03-22] MEDS: INSULIN LISPRO 100 UNITS/ML SUBCUT SCH ×2 (07:20→13:10)
[2022-03-22] MEDS: HYDROCHLOROTHIAZIDE 25MG TABLET PO SCH (08:30)
[2022-03-22] MEDS: SENNOSIDES 8.6MG TABLET PO SCH (08:30)
[2022-03-22] MEDS: LOSARTAN POTASSIUM 100 MG TABLET PO SCH (08:30)
[2022-03-22] MEDS: FOLIC ACID 1MG TABLET PO SCH (08:30)
[2022-03-22] MEDS: COLCHICINE 0.6MG TABLET PO SCH (08:30)
[2022-03-22] MEDS: AMLODIPINE 2.5MG TABLET PO SCH (08:30)
[2022-03-22] MEDS: METOCLOPRAMIDE HCL 10MG TABLET PO SCH ×2 (08:31→12:58)
[2022-03-22] MEDS: ASPIRIN 81MG EC TABLET PO SCH (08:31)
[2022-03-22] MEDS: PREDNISONE 20MG TABLET PO SCH (08:31)
[2022-03-22] MEDS: DICLOFENAC SODIUM 75MG DR (EC) TABLET PO SCH (08:31)
[2022-03-22] MEDS: GABAPENTIN 300MG CAPSULE PO SCH (08:31)
[2022-03-22] MEDS: LORATADINE 10MG TABLET PO SCH (08:31)
[2022-03-22] MEDS: METHOCARBAMOL 500MG TABLET PO SCH ×2 (08:31→12:58)
[2022-03-22] MEDS: INSULIN GLARGINE 100 UNITS/ML SUBCUT SCH (08:35)
[2022-03-22] MEDS: HYDROXYCHLOROQUINE SULFATE 200MG TABLET PO SCH (08:36)
[2022-03-22] MEDS ORDERED: NALOXONE HCL 0.4MG/ML VIAL IV PRN (10:45)
[2022-03-22] MEDS ORDERED: AMLO5TAB88 MT (12:55)
[2022-03-22] MEDS ORDERED: ASPI-1406 PO (12:55)
[2022-03-22] MEDS ORDERED: P20 PO (12:55)
== END 2022-03-22 17:40 | disposition home or self-care (01) | DRG 194 ==
LOC: ER 16:05 → EDBEDREQ 16:52 → MICUSO 18:24 → EDBEDREQ 18:27 → 3WST 21:41
PROVIDERS: ADMIT Internal Medicine; ATTEND Internal Medicine
PROC: 02HV33Z Insertion of Infusion Device into Superior Vena Cava, Percutaneous Approach (ICD-10-PCS; principal; 2022-03-17)
PROC: B548ZZA Ultrasonography of Superior Vena Cava, Guidance (ICD-10-PCS; 2022-03-17)
DX: I11.0 Hypertensive heart disease with heart failure (principal); J96.01 Acute respiratory failure with hypoxia; J18.9 Pneumonia, unspecified organism; E46 Unspecified protein-calorie malnutrition; J91.8 Pleural effusion in other conditions classified elsewhere; E11.43 Type 2 diabetes mellitus with diabetic autonomic (poly)neuropathy; E87.1 Hypo-osmolality and hyponatremia; J44.1 Chronic obstructive pulmonary disease with (acute) exacerbation; K31.84 Gastroparesis; I50.31 Acute diastolic (congestive) heart failure; M32.9 Systemic lupus erythematosus, unspecified; E11.65 Type 2 diabetes mellitus with hyperglycemia; E87.5 Hyperkalemia; E78.5 Hyperlipidemia, unspecified; Z68.35 Body mass index [BMI] 35.0-35.9, adult; Z88.6 Allergy status to analgesic agent; Z86.16 Personal history of COVID-19; Z88.2 Allergy status to sulfonamides; Z91.010 Allergy to peanuts; Z88.8 Allergy status to other drugs, medicaments and biological substances; Z79.899 Other long term (current) drug therapy; Z90.710 Acquired absence of both cervix and uterus; Z82.49 Family history of ischemic heart disease and other diseases of the circulatory system
CPT/HCPCS: 36415; 36573; 36600; 71045; 71275; 73502; 73560; 74176; 80048; 80053; 80305; 82375; 82550; 82553; 82607; 82805; 82962; 83540; 83550; 83735; 83880; 84132; 84145; 84439; 84443; 84481; 84484; 84703; 85025; 85044; 85379; 87426; 93005; 93306; 93970; 94640; 97162; 99291; C1725; J0456; J0696; J1815; J1940; J2270; J2930; J3490; J7060; J7512; J8597; Q9967